=== PATIENT | female | born 1970 | race Caucasian/White ===

== ENCOUNTER 2022-02-03 09:01 | Outpatient (CLI) | payer MEDICARE, MEDICAID, SELFPAY ==
--- NOTE | 2022-02-03 09:15 | CT_ITS ---
WS: [id number] CT ABDOMEN CONTRAST TECHNIQUE: Contrast enhanced CT of the abdomen with coronal and sagittal reformatted images. CLINICAL INFORMATION: RUQ ABDOMINAL SWELLING,MASS,LUMP COMPARISON: CT abdomen pelvis 10 18,014 DLP: 960.[address] scans at [facility] use at least one of these dose optimization techniques: automated e xposure control; mA and/or kV adjustment per patient size (includes targeted exams where dose is matc hed to clinical indication); or iterative reconstruction. FINDINGS: Hepatomegaly with diffuse fatty infiltration liver. Cholecystectomy clips. Normal spleen. Moderate es ophageal hiatal hernia with partial intrathoracic stomach similar to 2014. Lung bases are well aerate d. Calcified granuloma RIGHT lower lobe. Coronary calcification. Normal portal vein and splenic vein. Normal spleen. Adrenal glands are normal. No hydronephrosis in either kidney. Normal renal parenchymal enhancement. Proximal celiac and SMA are patent. Adrenal glands are normal. Normal renal parenchymal enhancement. No hydronephrosis. Normal caliber abdominal aorta. Hypertrophic changes lower thoracic and lumbar spi ne. Disc space narrowing L5-S1. CT/CT abdomen w con* [id number] IMPRESSION: 1. Diffuse fatty infiltration liver. Mild hepatomegaly. 2. Moderate esophageal hiatal hernia with partial intrathoracic stomach progre ssed slightly since 2014. 3. Normal caliber abdominal aorta. 4. No hydronephrosis in either kidney. Normal renal parenchymal enhancement. 5. No other acute abdominal findings.
[2022-02-03] MEDS: iohexol 300 mg/mL 50 mL Btl PO (09:34)
[2022-02-03] MEDS: iohexol 300 mg/mL 100 mL Btl IV (09:55)
== END 2022-02-03 09:02 | disposition home or self-care (01) ==
LOC: RAD 09:03
PROVIDERS: PCP Nurse Practitioner Family; Visit Provider Nurse Practitioner
DX: R19.01 Right upper quadrant abdominal swelling, mass and lump (principal); K76.0 Fatty (change of) liver, not elsewhere classified; K44.9 Diaphragmatic hernia without obstruction or gangrene
CPT/HCPCS: 74160

== ENCOUNTER → 2022-03-09 08:07 | Outpatient (BNVA) | payer MEDICARE, MEDICAID, SELFPAY | PROVIDERS: PCP Nurse Practitioner Family; Referring Provider Nurse Practitioner; Visit Provider Surgery | DX: K44.9 Diaphragmatic hernia without obstruction or gangrene (principal); R10.9 Unspecified abdominal pain | CPT/HCPCS: 99204 ==

== ENCOUNTER 2022-05-14 10:54 | Inpatient (IN) | payer MEDICARE, MEDICAID, SELFPAY ==
[2022-05-14] VITALS (29 sets, daily range): BP systolic 117–178; BP diastolic 74–110; PULSE 90–115; RESP 10–20; TEMP 36.7–36.9; O2SAT 92–97; BMI 41.2
[2022-05-14 11:17] LABS: Glucose Point of Care 377 mg/dL (70-110)
--- NOTE | 2022-05-14 11:30 | W.ED.GENADLT ---
HPI - General Adult General: Chief complaint: Abdominal Pain Stated complaint: RLQ PAIN/ HIGH BLOOD SUGAR Time Seen by Provider: 05/14/22 11:09 History of Present Illness: Patient is a 52-year-old female history of prior cholecystectomy, morbid obesity, hypothyroidism, hyperlipidemia, diabetes who presents the emergency room for evaluation of epigastric and left lower quadrant abdominal pain x1 week. Patient tells me that pain started at rest since it has been worsening. Patient said that she has nausea vomiting worsening pain with p.o. intake. Patient denies any diarrhea melena/hematochezia. No complaints currently. Patient denies any fever or chills. Patient denies any chest pain, shortness or palpitation. Patient states that the pain has been unremitting and constant. No prior history of kidney stones. Onset:1 week ago Duration:1 week Location:home Severity:moderate Associated symptoms: Reports nausea and vomiting; Deny chest pain, dyspnea, rash or palpitations Review of Systems Const: Denies: fever(s) or chills Eyes: Denies: change in vision ENMT: Denies: mouth pain Card: Denies: chest pain or palpitations Resp: Denies: dyspnea or non-productive cough GI: Reports: abdominal pain (+midepigastric abd pain, LLQ abd pain), nausea and vomiting; Denies: diarrhea : Denies: dysuria Musc: Denies: extremity pain Skin/Breast: Denies: rash or new lesions Neuro: Denies: weakness in extremities Psych: Reports: other (Normal mood) Wiliam/Lymph: Denies: easy bruising PFSH ED PFSH: Medical History Chronic kidney disease Diabetes type 2, controlled Hyperlipidemia Hypertension Hypothyroidism Surgical History History of colonoscopy 10+yrs History of laparoscopic cholecystectomy 1997 Family History Other Cancer Chronic kidney disease (CKD) Dementia Diabetes Stroke Denies family history of CAD (coronary artery disease) Anesthesia complication Social History Smoking and tobacco status: never smoked Alcohol intake: never Lives independently: Yes Household members: none Physical Exam Const: COMMON NORMALS: alert HENMT: COMMON NORMALS: atraumatic HEAD & SCALP: atraumatic MOUTH: moist mucous membranes abnormal Eye: COMMON NORMALS: EOMs intact bilaterally and conjunctivae normal CONJUNCTIVA: Yes conjunctivae normal Neck/C-Spine: COMMON NORMALS: full ROM and supple Resp: COMMON NORMALS: normal respiratory effort and clear to auscultation bilaterally AUSCULTATION: clear to auscultation bilaterally Cardio: RATE: tachycardic GI: COMMON NORMALS: Soft to palpation PALPATION: Yes Soft to palpation OTHER: +LLQ and midepigastric focal TTP. NO guarding rebound, guarding, rigidity. No CVA tenderness to percussion. Neg Goldstein/Neg McBurney's point tenderness, no suprabupic tenderness to palpation. Extremity: COMMON NORMALS: full ROM Neuro: SENSORIUM/ORIENTATION: Yes alert MOTOR EXAM: No Abnormal motor strength present and Other motor observations present (no focal motor deficits) Psych: COMMON NORMALS: speech normal SPEECH: Yes normal speech MOOD & AFFECT: Yes euthymic mood Course Vital Signs: Vital signs: Vital Signs Temperature 98.3 F 05/17/22 12:00 Pulse Rate 100 05/17/22 18:30 Respiratory Rate 18 05/17/22 12:00 Blood Pressure 158/98 05/17/22 12:00 Pulse Oximetry 95 05/17/22 12:00 [facility] - General Adult Medical Decision Making 52-year-old female with a history of diabetes, hypothyroidism, prior cholecystectomy presenting to the emergency room with complaints of midepigastric Srikanth pain and left lower quadrant dull pain x1 week. Exam, patient has mild tenderness palpation in mid-epigastric and left lower quadrant area. No guarding or rebound tenderness. Patient is noted to be mildly tachycardic to the low 100s. CT is negative for any acute finding. Patient's lab work is consistent with possible early DKA. Patient has a mild anion gap of 25. pH of 7.3.. Patient is ketone positive. Patient received 1 L fluid. Glucose of 399. Patient will will need rehydration and close monitoring to ensure that she does not develop any further gap. Lactic acid pending. Disposition: admission Lab Data : 05/17/22 05:22 05/17/22 05:22 Radiology Impressions Abdomen/Pelvis CT 05/14/22 11:40 IMPRESSION: No acute findings. KUB X-Ray 05/16/22 18:27 IMPRESSION: No acute findings. Laboratory Results WBC 9.2 10^3/uL (4.0-10.0) 05/14/22 11:28 RBC 5.41 10^6/uL (4.1-5.3) H 05/14/22 11:28 Hgb 15.5 g/dL (11.5-15.3) H 05/14/22 11:28 Hct 46.2 % (37.0-47.0) 05/14/22 11:28 MCV 85.4 fl (81-99) 05/14/22 11:28 MCH 28.7 pg (28.0-34.0) 05/14/22 11:28 MCHC 33.5 g/dL (30.0-36.0) 05/14/22 11:28 RDW 12.6 % (12.1-15.1) 05/14/22 11:28 Plt Count 292 10^3/cmm (130-400) 05/14/22 11:28 MPV 11.0 fL (7.4-10.4) H 05/14/22 11:28 Neut % (Auto) 66.8 % 05/14/22 11:28 Lymph % (Auto) 25.5 % 05/14/22 11:28 Walton % (Auto) 6.3 % 05/14/22 11:28 Eos % (Auto) 0.5 % 05/14/22 11:28 Baso % (Auto) 0.4 % 05/14/22 11:28 Neut # (Auto) 6.14 10^3/uL (1.8-7.7) 05/14/22 11:28 Lymph # (Auto) 2.4 10^3/uL (0.8-4.8) 05/14/22 11:28 Walton # (Auto) 0.6 10^3/uL (0.2-0.9) 05/14/22 11:28 Eos # (Auto) 0.1 10^3/uL (0.0-0.8) 05/14/22 11:28 Baso # (Auto) 0.0 10^3/uL (0.0-0.1) 05/14/22 11:28 Nucleated RBC % (auto) 0 % 05/14/22 11:28 Nucleated RBCs # 0.0 /100WBC 05/14/22 11:28 Specimen Type Arterial 05/14/22 12:49 Sample Site Radial, left 05/14/22 12:49 ABG pH 7.30 (7.35-7.45) L 05/14/22 12:49 ABG pCO2 33.3 mmHg (35-45) L 05/14/22 12:49 ABG pO2 76.7 mmHg (80.0-100.0) L 05/14/22 12:49 ABG HCO3 16.5 mmol/L (22-26) L 05/14/22 12:49 ABG O2 Saturation 94.0 05/14/22 12:49 ABG Base Excess -8.7 mmol/L (-2.0-2.0) L 05/14/22 12:49 Laz Test Pos 05/14/22 12:49 A-a O2 Gradient 4.1 mmHg (5-10) L 05/14/22 12:49 Hematocrit 47.1 % (37-47) H 05/14/22 12:49 Hgb O2 Saturation 93.4 % (95-100) L 05/14/22 12:49 Carboxyhemoglobin 0.1 %THgb (0.4-20.1) L 05/14/22 12:49 Methemoglobin 0.6 % (0.4-1.5) 05/14/22 12:49 Total Hemoglobin 15.4 g/dL (12-16) 05/14/22 12:49 Sodium 132.0 mmol/L (131-143) 05/14/22 12:49 Potassium 4.3 mmol/L (3.5-5.0) 05/14/22 12:49 Glucose 345.0 mg/dL (70-115) H 05/14/22 12:49 Ionized Calcium 1.4 mmol/L (1.1-1.4) 05/14/22 12:49 O2 Delivery Device Room air 05/14/22 12:49 FiO2 21.0 % 05/14/22 12:49 Building Maintenance Supervisor ID Cak 05/14/22 12:49 Sodium 131 mmol/L (136-145) L 05/14/22 11:28 Potassium 4.8 mmol/L (3.5-5.1) 05/14/22 11:28 Chloride 91 mmol/L (98-107) L 05/14/22 11:28 Carbon Dioxide 19 mmol/L (22-29) L 05/14/22 11:28 Anion Gap 25.8 (5-19) H 05/14/22 11:28 BUN 14 mg/dL (6-20) 05/14/22 11:28 Creatinine 1.1 mg/dL (0.5-0.9) H 05/14/22 11:28 GFR Calculation 51.8 mL/min (90-130) L 05/14/22 11:28 Glucose 399 mg/dL (65-115) H 05/14/22 11:28 POC Glucose 377 mg/dL (70-110) H 05/14/22 11:14 Calculated Osmolality 289 mOsm/kg (285-295) 05/14/22 11:28 Lactic Acid 1.1 mmol/L (0.5-2.2) 05/14/22 13:49 Lactate 1.1 mmol/L (0.5-2.2) 05/14/22 11:28 Calcium 10.5 mg/dL (8.5-10.5) 05/14/22 11:28 Total Bilirubin 0.4 mg/dL (0.15-1.2) 05/14/22 11:28 AST 10 U/L (0-32) 05/14/22 11:28 ALT 10 U/L (0-33) 05/14/22 11:28 Alkaline Phosphatase 100 IU/L (35-105) 05/14/22 11:28 Troponin T Baseline 21 ng/L (0-10) H 05/14/22 11:28 Troponin T 120 Minute 16.84 ng/L (0-10) H 05/14/22 13:49 Delta Troponin T -4.16 ABS# (0-10) L 05/14/22 13:49 Total Protein 7.1 g/dL (6.6-8.7) 05/14/22 11:28 Albumin 4.2 g/dL (3.5-5.2) 05/14/22 11:28 Globulin 2.9 g/dL (1.3-4.6) 05/14/22 11:28 Lipase 17 U/L (13-60) 05/14/22 11:28 Procalcitonin 0.06 ng/mL (0-0.5) 05/14/22 13:49 Serum Ketones Positive (Negative) H 05/14/22 11:28 Imaging Data Other Imaging: [facility]'s [facility]: [facility] [address] [place] [address] CT Scan Report Signed Patient: Brittny Banks Unit #: [id number] : 1970 Age/Sex: 52 / F ADM Date: 05/14/22 Loc: ER Room/Bed: Attending Dr: Ordering Provider/Ordering MD: Regis Christian MD Date of Service: 05/14/22 Procedure(s): CT abdomen pelvis wo con [id number] Accession Number(s): [id number] Report Number: [id number] PROCEDURE INFORMATION: Exam: CT Abdomen And Pelvis Without Contrast Exam date and time: 05/14/2022 12:11 PM Age: 52 years old Clinical indication: Abdominal pain; Additional info: Abd pain TECHNIQUE: Imaging protocol: Computed tomography of the abdomen and pelvis without contrast. Total images: 849 Radiation optimization: All CT scans at this facility use at least one of these dose optimization techniques: automated exposure control; mA and/or kV adjustment per patient size (includes targeted exams where dose is matched to clinical indication); or iterative reconstruction. COMPARISON: CT abdomen w con* [id number] 02/03/2022 9:48 AM RADIATION DOSE METRICS: Total DLP (mGy-cm): 1270.46 FINDINGS: Diaphragm: A moderate hiatal hernia is present. This finding is stable when compared to the prior exam. Liver: Normal. No mass. Gallbladder and bile ducts: Prior cholecystectomy noted. Pancreas: Normal. No ductal dilation. Spleen: Normal. No splenomegaly. Adrenal glands: Normal. No mass. Kidneys and ureters: Normal. No hydronephrosis. Stomach and bowel: Unremarkable. No obstruction. No mucosal thickening. Appendix: No evidence of appendicitis. Intraperitoneal space: Unremarkable. No free air. No significant fluid collection. Vasculature: Incidental phleboliths noted. Lymph nodes: Unremarkable. No enlarged lymph nodes. Urinary bladder: Unremarkable as visualized. Reproductive: Unremarkable as visualized. Bones/joints: Disc degeneration is most notable at L5/S1. Soft tissues: Unremarkable. CT/CT abdomen pelvis wo con [id number] IMPRESSION: No acute findings. ? Dictated By: Amadou Babb MD Signed By: Amadou Babb MD Signed Date/Time: 05/14/22 1312 DD/ 1211 Discharge Plan Discharge Patient Disposition: Home Clinical Impression: Abdominal pain, Nausea & vomiting Condition: Stable Discharge Orders: Discharge Order (Routine); Ordered 05/17/22 Ordered By: Remedios Quinteros Discharge Diet: Diabetic Discharge Activity: Increase activity as tolerated Coding Level of Care Code ED Store Sales Leader for Chg Fwd Exam Comprehensive
[2022-05-14 11:34] LABS: Basophils % 0.4 %; Eosinophils # 0.1 10^3/uL (0.0-0.8); Eosinophils % 0.5 %; Hematocrit 46.2 % (37.0-47.0); Hemoglobin 15.5 g/dL (11.5-15.3); Lymphocytes # 2.4 10^3/uL (0.8-4.8); Lymphocytes % 25.5 %; Mean Corpuscular HGB Conc 33.5 g/dL (30.0-36.0); Mean Corpuscular Hemoglobin 28.7 pg (28.0-34.0); Mean Corpuscular Volume 85.4 fl (81-99); Monocytes # 0.6 10^3/uL (0.2-0.9); Monocytes % 6.3 %; Neutrophils # 6.14 10^3/uL (1.8-7.7); Neutrophils % 66.8 %; Nucleated Red Blood Cells % 0 %; Platelet Count 292 10^3/cmm (130-400); Red Blood Count 5.41 10^6/uL (4.1-5.3); Red Cell Distribution Width 12.6 % (12.1-15.1); White Blood Count 9.2 10^3/uL (4.0-10.0)
--- NOTE | 2022-05-14 11:40 | CTR_ITS ---
PROCEDURE INFORMATION: Exam: CT Abdomen And Pelvis Without Contrast Exam date and time: 05/14/2022 12:11 PM Age: 52 years old Clinical indication: Abdominal pain; Additional info: Abd pain TECHNIQUE: Imaging protocol: Computed tomography of the abdomen and pelvis without contrast. Total images: 849 Radiation optimization: All CT scans at this facility use at least one of these dose optimization techniques: automated exposure control; mA and/or kV adjustment per patient size (includes targeted exams where dose is matched to clinical indication); or iterative reconstruction. COMPARISON: CT abdomen w con* [id number] 02/03/2022 9:48 AM RADIATION DOSE METRICS: Total DLP (mGy-cm): 1270.46 FINDINGS: Diaphragm: A moderate hiatal hernia is present. This finding is stable when compared to the prior exam. Liver: Normal. No mass. Gallbladder and bile ducts: Prior cholecystectomy noted. Pancreas: Normal. No ductal dilation. Spleen: Normal. No splenomegaly. Adrenal glands: Normal. No mass. Kidneys and ureters: Normal. No hydronephrosis. Stomach and bowel: Unremarkable. No obstruction. No mucosal thickening. Appendix: No evidence of appendicitis. Intraperitoneal space: Unremarkable. No free air. No significant fluid collection. Vasculature: Incidental phleboliths noted. Lymph nodes: Unremarkable. No enlarged lymph nodes. Urinary bladder: Unremarkable as visualized. Reproductive: Unremarkable as visualized. Bones/joints: Disc degeneration is most notable at L5/S1. Soft tissues: Unremarkable. CT/CT abdomen pelvis wo con [id number] IMPRESSION: No acute findings.
[2022-05-14 11:50] LABS: Ketone (Acetest) Serum Positive (Negative)
--- NOTE | 2022-05-14 11:53 | ECG_ITS ---
[facility] Test Date: 2022-05-14 Pat Name: Brittny Banks Department: Room: Gender: Female Vp Client Services: : 1970 Requested By: Regis Christian Order Number: [id number] Suni MD: Greg Calloway M.D. Measurements Intervals [place] Rate: 102 P: 60 AR: 139 QRS: 43 QRSD: 83 T: 45 QT: 331 QTc: 431 Interpretive Statements SINUS TACHYCARDIA No previous ECG available for comparison Electronically Signed On 05-14-2022 20:43:11 CDT by Greg Calloway M.D. [id number]
[2022-05-14 11:54] LABS: Lactate (Lactic Acid level) 1.1 mmol/L (0.5-2.2)
[2022-05-14 11:55] LABS: Alanine Aminotransferase 10 U/L (0-33); Albumin Level 4.2 g/dL (3.5-5.2); Alkaline Phosphatase 100 IU/L (35-105); Anion Gap 25.8 (5-19); Aspartate Amino Transferase 10 U/L (0-32); Blood Urea Nitrogen 14 mg/dL (6-20); Calcium 10.5 mg/dL (8.5-10.5); Carbon Dioxide 19 mmol/L (22-29); Chloride 91 mmol/L (98-107); Globulin 2.9 g/dL (1.3-4.6); Glomerular Filtration Rate 51.8 mL/min (90-130); Glucose 399 mg/dL (65-115); Lipase 17 U/L (13-60); Osmolality Calculated 289 mOsm/kg (285-295); Potassium 4.8 mmol/L (3.5-5.1); Sodium 131 mmol/L (136-145); Total Bilirubin 0.4 mg/dL (0.15-1.2); Total Protein 7.1 g/dL (6.6-8.7)
[2022-05-14 12:57] LABS: Troponin(5th) Baseline 21 ng/L (0-10)
[2022-05-14 13:01] LABS: ABG PCO2 33.3 mmHg (35-45); Alveolar-Arterial Oxygen Gradi 4.1 mmHg (5-10); Arterial Blood Gas Hematocrit 47.1 % (37-47); Base Excess ABG -8.7 mmol/L (-2.0-2.0); Blood Gas Allen Test Pos; Blood Gas Operator Identificat CAK; Blood Gas Sample Site Radial, left; Blood Gas Sample Type Arterial; Carboxyhemoglobin 0.1 %THgb (0.4-20.1); HCO3 ABG 16.5 mmol/L (22-26); HGB O2 Sat 93.4 % (95-100); Ionized Calcium Level - ABG 1.4 mmol/L (1.1-1.4); Methemoglobin 0.6 % (0.4-1.5); Oxygen Device ROOM AIR; PO2 ABG 76.7 mmHg (80.0-100.0); Potassium Level - ABG 4.3 mmol/L (3.5-5.0); Total Hemoglobin 15.4 g/dL (12-16)
--- NOTE | 2022-05-14 13:53 | ECG_ITS ---
[facility] Test Date: 2022-05-14 Pat Name: Brittny Banks Department: Room: Gender: Female Freight Caller: : 1970 Requested By: Regis Christian Order Number: [id number] Suni MD: Greg Calloway M.D. Measurements Intervals [place] Rate: 100 P: 62 TN: 138 QRS: 34 QRSD: 82 T: 44 QT: 334 QTc: 432 Interpretive Statements SINUS TACHYCARDIA Compared to ECG 05/14/2022 13:19:56 No significant changes Electronically Signed On 05-14-2022 20:46:07 CDT by Greg Calloway M.D. [email or web address] [email or web address].[employer]/store/[id number]
[2022-05-14 14:20] LABS: Troponin 5 2HR 16.84 ng/L (0-10)
[2022-05-14 14:26] LABS: Troponin 5 2HR Delta -4.16 ABS# (0-10)
[2022-05-14 14:51] LABS: Lactic Sepsis W/Reflex 1.1 mmol/L (0.5-2.2)
[2022-05-14] MEDS: sodium chloride 0.9% 1,000 ML 999 ML IV (14:56)
[2022-05-14] MEDS: insulin lispro 100 unit/1 mL SUBCUT (14:56)
--- NOTE | 2022-05-14 15:34 | PC.PHAR ---
PT UNABLE TO VERIFY MEDS - MEDS VERIFIED USING LIST FROM DR OFFICE, CALL TO [facility] AND PT OTHER PHARMACY.
--- NOTE | 2022-05-14 15:51 | PM.HP ---
Providers/Chief Complaint Admitting Physician: Remedios Quinteros MD Primary Care Provider: Marlene Santamaria NP Chief Complaint: RLQ PAIN/ HIGH BLOOD SUGAR History of Present Illness Brittny Banks is a 52 year old female who has history of type 2 diabetes, takes 80 units of Lantus on daily basis, along short acting insulin, presented to the hospital for worsening of abdominal pain. Patient is stating that her symptoms started on Tuesday and got worse the next few days, in total she has had more than 20 episode of emesis. Endorsing subjective fevers, UTI burning and itching with voiding urine. She has not noticed any vaginal discharge. No chest pain or shortness of breath. She is endorsing abdominal pain mid epigastric region and left lower quadrant. She is denying diarrhea. Last bowel movement was 1 week ago. She lives alone, she is not she does not have any children. She have siblings, she wants her [id number] to be notified in case something happens to her. She is full code. In the ER I was told that patient should be able to go to [facility] however blood work is consistent with DKA, she has received fluid boluses, I will transfer her to ICU start DKA protocol change IV fluids to normal saline with potassium, I have requested triglyceride level Free T4 level her hemoglobin A1c is 12, she does take time to answer my questions however does not have typical strokelike features. Review of Systems Const: Reports: fever(s) Eyes: Denies: change in vision ENMT: Denies: throat pain Card: Denies: chest pain Resp: Denies: dyspnea GI: Reports: abdominal pain, nausea and vomiting : Reports: flank pain, difficulty voiding and dysuria Musc: Denies: neck pain Skin/Breast: Denies: rash Neuro: Reports: headache(s) Psych: Denies: anxiety Endo: Denies: polyuria Wiliam/Lymph: Denies: easy bruising All/Imm: Denies: urticaria Medications/Allergies Home Medications Medication Instructions Recorded Confirmed Last Taken Type levothyroxine 125 mcg capsule 125 mcg PO DAILY 03/09/22 05/14/22 Unknown History albuterol sulfate 90 mcg/actuation 2 puff INHALATION Q4H PRN 05/14/22 05/14/22 Unknown History aerosol inhaler cetirizine 10 mg tablet 10 mg PO DAILY 05/14/22 05/14/22 Unknown History clobetasol 0.05 % topical cream 1 applic TOPICAL BID 05/14/22 05/14/22 Unknown History diclofenac potassium 50 mg tablet 50 mg PO BID 05/14/22 05/14/22 Unknown History docusate sodium 100 mg capsule 100 mg PO TID PRN 05/14/22 05/14/22 Unknown History duloxetine 60 mg capsule,delayed 60 mg PO DAILY 05/14/22 05/14/22 Unknown History release gabapentin 300 mg capsule 300 mg PO BID 05/14/22 05/14/22 Unknown History glipizide 10 mg tablet 15 mg PO BID 05/14/22 05/14/22 Unknown History guaifenesin 600 mg tablet, 600 mg PO Q12H PRN 05/14/22 05/14/22 Unknown History extended release 12 hr (Mucinex) insulin degludec 200 unit/mL (3 40 unit SUBCUT BEDTIME 05/14/22 05/14/22 Unknown History mL) subcutaneous pen (Tresiba FlexTouch U-200 insulin) insulin lispro 200 unit/mL (3 mL) See Rx Instructions .ROUTE .COMPLEX 05/14/22 05/14/22 Unknown History subcutaneous pen (Humalog KwikPen U-200 Insulin) linagliptin 5 mg tablet (Tradjenta) 5 mg PO DAILY 05/14/22 05/14/22 Unknown History losartan 25 mg tablet 25 mg PO DAILY 05/14/22 05/14/22 Unknown History omeprazole 40 mg capsule,delayed 40 mg PO DAILY 05/14/22 05/14/22 Unknown History release ondansetron 8 mg disintegrating 8 mg PO BID 05/14/22 05/14/22 Unknown History tablet pantoprazole 40 mg tablet,delayed 40 mg PO DAILY 05/14/22 05/14/22 Unknown History release rosuvastatin 20 mg tablet 40 mg PO DAILY 05/14/22 05/14/22 Unknown History semaglutide 1 mg/dose (4 mg/3 mL) 0.25 mg SUBCUT Q7D 05/14/22 05/14/22 Unknown History subcutaneous pen injector (Ozempic) sertraline 50 mg tablet 50 mg PO DAILY 05/14/22 05/14/22 Unknown History tramadol 50 mg tablet 50 mg PO Q6H PRN 05/14/22 05/14/22 Unknown History Allergies Allergy/AdvReac Type Severity Reaction Status Date / Time No Known Allergies Allergy Verified 05/14/22 15:02 PFSH Acute PFSH: Medical History Chronic kidney disease Diabetes type 2, controlled Hyperlipidemia Hypertension Hypothyroidism Surgical History History of colonoscopy 10+yrs History of laparoscopic cholecystectomy 1997 Family History Other Cancer Chronic kidney disease (CKD) Dementia Diabetes Stroke Denies family history of CAD (coronary artery disease) Anesthesia complication Social History Smoking and tobacco status: never smoked Alcohol intake: never Lives independently: Yes Household members: none Vitals/I&O/Wt Last Vital Signs Temp 98.4 F 05/14/22 11:10 Pulse 104 H 05/14/22 11:10 Resp 16 05/14/22 11:10 BP 178/101 05/14/22 11:10 Pulse Ox 96 05/14/22 11:10 Weight last 48 hrs Weight 92.533 kg Physical Exam Narrative: Very pleasant cooperative Patient does take time to answer my questions No strokelike features Patient is stating whenever she is sick she would take time to answer Abdomen tender to palpate Otherwise soft Lower extremity no edema multiple scratch guaman on her extremities Awake and alert Extremely dehydrated Saturating well on room air EOMI, PERRLA Awake and alert GCS 15 Data : 05/14/22 11:28 05/14/22 16:51 A&P Assessment and plan (1) DKA (diabetic ketoacidosis): Status: Acute (2) Abdominal pain: Status: Acute (3) Nausea & vomiting: Status: Acute (4) UTI (urinary tract infection): Status: Acute Plan DKA Poorly controlled type 2 diabetes N.p.o. Start insulin Add normal saline with 40 mEq Will give her 40 mEq K rider as well Hemoglobin A1c 12 Check triglyceride Lipase is normal Patient seems to have signs of UTI CT abdomen pelvis unremarkable Hiatal hernia Troponin trending down Will do chest x-ray Abnormal TSH, she does take levothyroxine at home I would increase the dose to 150 mcg UTI: Endorsing dysuria and itching Check UA with culture start ceftriaxone Patient has cleaner housekeeping in [place] N.p.o. for now BMP every 4 hours DKA protocol IV fluids, ceftriaxone Patient is full code She does not have any family, children, she wants her [id number] to be notified in case of an emergency Attestations Medical Necessity Statement*: Anticipating more than 2 midnights for management of DKA Time Spent in Patient Care: 40 Coding Level of Care Code Acute Insurance Examiner for [facility] Fwd Diagnoses DKA (diabetic ketoacidosis) E11.10 Abdominal pain R10.9 Nausea & vomiting R11.2 UTI (urinary tract infection) N39.0
[2022-05-14 16:27] LABS: Procalcitonin 0.06 ng/mL (0-0.5)
[2022-05-14] MEDS: heparin 5,000 unit/mL INJ 1 mL 5000 UNIT SUBCUT (17:17)
[2022-05-14] MEDS: sodium chloride 0.9% 1,000 ML 100 ML IV (17:18)
[2022-05-14 17:22] LABS: Anion Gap 24.2 (5-19); Blood Urea Nitrogen 12 mg/dL (6-20); Calcium 9.7 mg/dL (8.5-10.5); Carbon Dioxide 16 mmol/L (22-29); Chloride 96 mmol/L (98-107); Glomerular Filtration Rate 65.2 mL/min (90-130); Glucose 275 mg/dL (65-115); Osmolality Calculated 284 mOsm/kg (285-295); Potassium 4.2 mmol/L (3.5-5.1); Sodium 132 mmol/L (136-145); Thyroid Stimulating Hormone 18.04 uIU/mL (0.27-4.20)
[2022-05-14] MEDS: insulin regular-human 250 UNIT in sodium chloride 0.9% 250 ML 5.96 UNIT IV (17:29)
[2022-05-14 17:58] LABS: Estmated Average Glucose 301; Hemoglobin A1C 12.1 % (4.0-6.0)
[2022-05-14 18:05] LABS: Glucose Point of Care 196 mg/dL (70-110)
[2022-05-14 18:34] LABS: Glucose Point of Care 255 mg/dL (70-110)
[2022-05-14] MEDS: acetaminophen 500 mg Tablet PO (18:35)
[2022-05-14] MEDS: cefTRIAXone 1,000 MG in sodium chloride 0.9% (plus) 50 ML 100 MG IV (19:38)
[2022-05-14] MEDS: lidocaine 1% 5 ML in potassium chloride premix 100 ML 50 ML IV (19:40)
[2022-05-14] MEDS: sodium chlor 0.9% + KCl 40 mEq 40 MEQ/1,000 ML BAG 100 MEQ IV (19:40)
[2022-05-14 19:56] LABS: Anion Gap 21.6 (5-19); Blood Urea Nitrogen 12 mg/dL (6-20); Carbon Dioxide 20 mmol/L (22-29); Chloride 99 mmol/L (98-107); Chol HDL Ratio 4.85 mg/dL (0.0-4.40); Cholesterol 199 mg/dL (0-200); Glomerular Filtration Rate 65.2 mL/min (90-130); Glucose 123 mg/dL (65-115); HDL Cholesterol 41 mg/dL (60-100); LDL Cholesterol Calculated 118 mg/dL (50-129); LDL HDL Ratio 2.88 RATIO (0.00-3.22); Osmolality Calculated 285 mOsm/kg (285-295); Potassium 3.6 mmol/L (3.5-5.1); Sodium 137 mmol/L (136-145); Triglycerides 202 mg/dL (0-150)
[2022-05-14] MEDS: TRAMadol 50 mg Tablet PO (20:09)
[2022-05-14 20:22] LABS: Protein Urine 3+ (Negative); Specific Gravity, Urine 1.025 (1.005-1.030); Urine Appearance Hazy (CLEAR); Urine Color Yellow (Yellow); pH Urine 5 (5-7)
[2022-05-14 20:23] LABS: Add Urine Microscopic? YES; Bilirubin Urine 1+ (Negative); Blood Urine Neg (Negative); Glucose Urine UA 4+ (Normal); Ketones Urine 3+ (Negative); Leukocyte Esterase Urine 2+ (Negative); Nitrate Urine Negative (Negative); Urobilinogen Urine Norm (Negative)
[2022-05-14 20:28] LABS: Add Urine Culture? No; Bacteria Urine 1+ /hpf; Mucus Urine TRACE /hpf; RBC Urine 0-4 /hpf (0-2); Squamous Epithelial Cell Urine 25-40 /hpf (0-5); WBC Urine 15-25 /hpf (0-5)
[2022-05-14 21:15] LABS: Free T4 Free Thyroxine 0.64 ng/dL (0.82-1.77)
[2022-05-14 21:23] LABS: Glucose Point of Care 130 mg/dL (70-110)
[2022-05-14 21:23] LABS: Glucose Point of Care 104 mg/dL (70-110)
[2022-05-14 21:23] LABS: Glucose Point of Care 100 mg/dL (70-110)
--- NOTE | 2022-05-14 21:50 | PC.NURSE ---
D5 Fluid Patient's blood sugar running about 100 while on insulin drip. 40 meq KCL NS running at 100 ml/hr with an additional K rider; no dextrose fluids running. Dr. Matt contacted and verbal order received for Dextrose 5% in 0.45% NS to run at 100 ml/hr for a total of 200 ml/hr of fluid maintenance. See MAR for details.
[2022-05-14] MEDS: ondansetron 2 mg/ML SDV 2 mL 4 MG IVP (22:11)
[2022-05-14] MEDS: dextrose 5%-sod chloride 0.45% 1,000 ML 100 ML IV (22:11)
[2022-05-14 22:20] LABS: Glucose Point of Care 111 mg/dL (70-110)
[2022-05-14 22:49] LABS: Glucose Point of Care 135 mg/dL (70-110)
[2022-05-15] VITALS (49 sets, daily range): BP systolic 127–168; BP diastolic 77–108; PULSE 75–134; RESP 9–19; TEMP 36.8–37.2; O2SAT 90–97
[2022-05-15 01:04] LABS: Anion Gap 18.5 (5-19); Blood Urea Nitrogen 12 mg/dL (6-20); Calcium 9.4 mg/dL (8.5-10.5); Carbon Dioxide 20 mmol/L (22-29); Chloride 101 mmol/L (98-107); Glomerular Filtration Rate 57.8 mL/min (90-130); Glucose 201 mg/dL (65-115); Magnesium 1.6 mg/dL (1.7-2.3); Osmolality Calculated 285 mOsm/kg (285-295); Phosphorus 2.8 mg/dL (2.5-4.5); Potassium 4.5 mmol/L (3.5-5.1); Sodium 135 mmol/L (136-145)
[2022-05-15] MEDS: magnesium sulfate premix 2 GM/50 ML PIGGYBACK IV (02:05)
[2022-05-15 02:18] LABS: Glucose Point of Care 183 mg/dL (70-110)
[2022-05-15 02:18] LABS: Glucose Point of Care 144 mg/dL (70-110)
[2022-05-15 02:18] LABS: Glucose Point of Care 161 mg/dL (70-110)
[2022-05-15 02:18] LABS: Glucose Point of Care 191 mg/dL (70-110)
[2022-05-15] MEDS: TRAMadol 50 mg Tablet PO ×2 (02:19→13:09)
[2022-05-15] MEDS: heparin 5,000 unit/mL INJ 1 mL 5000 UNIT SUBCUT ×2 (04:10→15:31)
[2022-05-15 04:15] LABS: Glucose Point of Care 132 mg/dL (70-110)
[2022-05-15 04:15] LABS: Glucose Point of Care 166 mg/dL (70-110)
[2022-05-15 05:37] LABS: Basophils % 0.3 %; Eosinophils # 0.1 10^3/uL (0.0-0.8); Hematocrit 40.3 % (37.0-47.0); Hemoglobin 13.8 g/dL (11.5-15.3); Lymphocytes # 2.1 10^3/uL (0.8-4.8); Mean Corpuscular HGB Conc 34.2 g/dL (30.0-36.0); Mean Corpuscular Volume 84.7 fl (81-99); Monocytes # 0.6 10^3/uL (0.2-0.9); Monocytes % 6.2 %; Neutrophils # 6.27 10^3/uL (1.8-7.7); Neutrophils % 69.2 %; Nucleated Red Blood Cells % 0 %; Platelet Count 250 10^3/cmm (130-400); Red Blood Count 4.76 10^6/uL (4.1-5.3); Red Cell Distribution Width 12.6 % (12.1-15.1); White Blood Count 9.1 10^3/uL (4.0-10.0)
[2022-05-15] MEDS: ondansetron 2 mg/ML SDV 2 mL 4 MG IVP ×4 (05:52→21:31)
[2022-05-15 05:58] LABS: Lactate (Lactic Acid level) 0.7 mmol/L (0.5-2.2)
[2022-05-15 06:00] LABS: Alanine Aminotransferase 10 U/L (0-33); Albumin Level 3.3 g/dL (3.5-5.2); Alkaline Phosphatase 84 IU/L (35-105); Blood Urea Nitrogen 12 mg/dL (6-20); Calcium 8.8 mg/dL (8.5-10.5); Carbon Dioxide 15 mmol/L (22-29); Chloride 103 mmol/L (98-107); Globulin 2.7 g/dL (1.3-4.6); Glomerular Filtration Rate 74.7 mL/min (90-130); Glucose 186 mg/dL (65-115); Osmolality Calculated 285 mOsm/kg (285-295); Sodium 135 mmol/L (136-145); Total Bilirubin 0.2 mg/dL (0.15-1.2)
[2022-05-15 06:04] LABS: Anion Gap 21.4 (5-19); Aspartate Amino Transferase 15 U/L (0-32); Potassium 4.4 mmol/L (3.5-5.1)
[2022-05-15 06:07] LABS: Glucose Point of Care 207 mg/dL (70-110)
[2022-05-15 06:07] LABS: Glucose Point of Care 191 mg/dL (70-110)
[2022-05-15] MEDS: sodium chlor 0.9% + KCl 40 mEq 40 MEQ/1,000 ML BAG 75 MEQ IV (06:57)
[2022-05-15 07:15] LABS: Glucose Point of Care 187 mg/dL (70-110)
[2022-05-15 08:05] LABS: Glucose Point of Care 151 mg/dL (70-110)
[2022-05-15] MEDS: insulin lispro 100 unit/1 mL SUBCUT ×3 (08:11→21:12)
[2022-05-15] MEDS: levothyroxine 150 mcg Tablet PO (09:05)
[2022-05-15] MEDS: losartan 50 mg Tablet 25 MG PO (09:05)
[2022-05-15] MEDS: pantoprazole DR 40 mg Tablet PO (09:05)
[2022-05-15 09:11] LABS: Glucose Point of Care 130 mg/dL (70-110)
[2022-05-15] MEDS: dextrose 5%-sod chloride 0.45% 1,000 ML 75 ML IV ×2 (10:03→21:30)
[2022-05-15 10:06] LABS: Glucose Point of Care 139 mg/dL (70-110)
[2022-05-15 11:14] LABS: Glucose Point of Care 128 mg/dL (70-110)
[2022-05-15 12:04] LABS: Glucose Point of Care 135 mg/dL (70-110)
--- NOTE | 2022-05-15 12:31 | PM.PN ---
Subjective Subjective: This morning anion gap has opened up again, currently she is on D5 and insulin, still complaining of mild pain in her abdomen No active emesis, patient is stating that she had to small episode of dry heaves and emesis in the morning Saturating well on room air Repeating CMP at this point Blood sugar less than 180 Vitals/I&O/Wt Last Vital Signs Temp 98.9 F 05/15/22 07:30 Pulse 84 05/15/22 11:30 Resp 13 05/15/22 11:30 BP 141/85 05/15/22 11:30 Pulse Ox 93 05/15/22 11:30 05/14/22 05/15/22 05/15/22 22:59 06:59 14:59 Intake Total 1166.949 / 1672.885 4631.193 / 2732.142 629.009 / 629.009 Output Total 370 / 370 350 / 720 Balance 796.949 / 643.586 8664.193 / 2012.142 629.009 / 629.009 Weight last 48 hrs Weight 92.533 kg Physical Exam Narrative: Patient to episode of emesis this morning Abdomen is soft mild tenderness in midepigastric region Awake and alert Nonfocal neuro exam He does appear slightly anxious She is on room air, saturating well Nonfocal neuro exam S1, S2 sinus rhythm Data : 05/15/22 04:50 05/15/22 04:50 A&P Assessment and plan (1) UTI (urinary tract infection): Status: Acute (2) DKA (diabetic ketoacidosis): Status: Acute (3) Abdominal pain: Status: Acute (4) Nausea & vomiting: Status: Acute Plan DKA secondary to UTI Gap almost closed &Reopened this morning D5 insulin running at this point Hemoglobin A1c 12 Patient stating that she takes 80 of long-acting insulin along her Premeal Hypothyroid I have increased the dose of levothyroxine UTI: Continue ceftriaxone Hypokalemia: Repleted Hypomagnesemia: Repleted Full code DVT prophylaxis on board Abdominal pain related to ketosis CT abdomen pelvis is unremarkable Attestations Medical Necessity Statement*: Continues icu management Time Spent in Patient Care: 30 Coding Level of Care Code Acute Group Manager for Chg Fwd Diagnoses UTI (urinary tract infection) N39.0 DKA (diabetic ketoacidosis) E11.10 Abdominal pain R10.9 Nausea & vomiting R11.2
[2022-05-15 14:13] LABS: Glucose Point of Care 146 mg/dL (70-110)
[2022-05-15 14:59] LABS: Alanine Aminotransferase 8 U/L (0-33); Albumin Level 3.3 g/dL (3.5-5.2); Alkaline Phosphatase 81 IU/L (35-105); Anion Gap 17.5 (5-19); Aspartate Amino Transferase 11 U/L (0-32); Blood Urea Nitrogen 10 mg/dL (6-20); Calcium 8.5 mg/dL (8.5-10.5); Carbon Dioxide 20 mmol/L (22-29); Chloride 103 mmol/L (98-107); Globulin 2.4 g/dL (1.3-4.6); Glomerular Filtration Rate 74.7 mL/min (90-130); Glucose 143 mg/dL (65-115); Osmolality Calculated 284 mOsm/kg (285-295); Potassium 4.5 mmol/L (3.5-5.1); Sodium 136 mmol/L (136-145); Total Bilirubin 0.2 mg/dL (0.15-1.2); Total Protein 5.7 g/dL (6.6-8.7)
[2022-05-15] MEDS: insulin glargine 100 units/1 mL 70 UNIT SUBCUT (15:30)
--- NOTE | 2022-05-15 15:40 | PC.NURSE ---
Lantus- At [address] Quinteros of Anion Gap at 17.5. Orders received to advance to carb consist diet and to give 70 units of Lantus now. Order followed 1529.
[2022-05-15] MEDS: lidocaine 2% viscous 15 ML, aluminum-mag hydrox-simethicon 30 ML, sucralfate oral liq 1 GM PO (16:03)
[2022-05-15 17:26] LABS: Glucose Point of Care 191 mg/dL (70-110)
[2022-05-15] MEDS: magnesium oxide 400 mg tablet PO (17:29)
[2022-05-15] MEDS: cefTRIAXone 1,000 MG in sodium chloride 0.9% (plus) 50 ML 100 MG IV (19:03)
[2022-05-15 21:08] LABS: Glucose Point of Care 182 mg/dL (70-110)
[2022-05-16] VITALS (40 sets, daily range): BP systolic 132–172; BP diastolic 76–104; PULSE 82–106; RESP 10–18; TEMP 36.7–37.1; O2SAT 91–97
[2022-05-16] MEDS: heparin 5,000 unit/mL INJ 1 mL 5000 UNIT SUBCUT ×2 (04:17→17:30)
[2022-05-16] MEDS: ondansetron 2 mg/ML SDV 2 mL 4 MG IVP ×2 (04:22→21:00)
[2022-05-16 04:24] LABS: Glucose Point of Care 168 mg/dL (70-110)
[2022-05-16 05:40] LABS: Basophils % 0.4 %; Eosinophils # 0.1 10^3/uL (0.0-0.8); Eosinophils % 1.1 %; Hematocrit 40.1 % (37.0-47.0); Hemoglobin 13.8 g/dL (11.5-15.3); Lymphocytes # 2.5 10^3/uL (0.8-4.8); Lymphocytes % 35.6 %; Mean Corpuscular HGB Conc 34.4 g/dL (30.0-36.0); Mean Corpuscular Hemoglobin 28.3 pg (28.0-34.0); Mean Corpuscular Volume 82.2 fl (81-99); Monocytes # 0.5 10^3/uL (0.2-0.9); Monocytes % 6.4 %; Neutrophils # 3.92 10^3/uL (1.8-7.7); Neutrophils % 56.1 %; Nucleated Red Blood Cells % 0 %; Platelet Count 216 10^3/cmm (130-400); Red Blood Count 4.88 10^6/uL (4.1-5.3); Red Cell Distribution Width 12.3 % (12.1-15.1)
[2022-05-16 05:59] LABS: Blood Urea Nitrogen 7 mg/dL (6-20); Calcium 9.2 mg/dL (8.5-10.5); Carbon Dioxide 21 mmol/L (22-29); Chloride 100 mmol/L (98-107); Glomerular Filtration Rate 87.2 mL/min (90-130); Glucose 184 mg/dL (65-115); Magnesium 1.6 mg/dL (1.7-2.3); Osmolality Calculated 279 mOsm/kg (285-295); Sodium 133 mmol/L (136-145)
[2022-05-16 06:03] LABS: Anion Gap 16.2 (5-19); Potassium 4.2 mmol/L (3.5-5.1)
[2022-05-16 08:08] LABS: Glucose Point of Care 192 mg/dL (70-110)
[2022-05-16] MEDS: insulin lispro 100 unit/1 mL SUBCUT ×4 (08:18→20:55)
[2022-05-16] MEDS: polyethylene glycol 3350 Pkt 17 gm PO (08:19)
[2022-05-16] MEDS: pantoprazole DR 40 mg Tablet PO (08:19)
[2022-05-16] MEDS: levothyroxine 150 mcg Tablet PO (08:19)
[2022-05-16] MEDS: losartan 50 mg Tablet 25 MG PO (08:19)
[2022-05-16] MEDS: magnesium oxide 400 mg tablet PO ×2 (08:19→17:31)
[2022-05-16 11:58] LABS: Glucose Point of Care 148 mg/dL (70-110)
--- NOTE | 2022-05-16 13:04 | P.PN_ITS ---
Subjective Subjective: Patient can be transferred out of ICU She was nauseous, Still complaining of left lower quadrant pain Will request KUB Blood sugar is better Potassium 4.2 Discontinue IV fluids She can have consistent carb diet Magnesium 1.6 Vitals/I&O/Wt Last Vital Signs Temp 98.5 F 05/16/22 05:00 Pulse 90 05/16/22 10:00 Resp 14 05/16/22 10:00 BP 167/102 05/16/22 10:00 Pulse Ox 95 05/16/22 10:00 05/15/22 05/16/22 05/16/22 22:59 06:59 14:59 Intake Total 480 / 1435.288 360 / 360 Output Total 1200 / 1200 500 / 1700 450 / 450 Balance -720 / 235.288 -500 / -264.712 -90 / -90 Physical Exam Narrative: Patient is laying supine Abdomen tender on deep palpation midepigastrium left lower quadrant Looks slightly dehydrated Saturating well on room air Hypertensive No signs of edema No active signs of stroke Data : 05/16/22 05:14 05/16/22 05:14 A&P Assessment and plan (1) UTI (urinary tract infection): Status: Acute (2) DKA (diabetic ketoacidosis): Status: Acute (3) Abdominal pain: Status: Acute (4) Nausea & vomiting: Status: Acute Plan DKA: Resolved Hypomagnesemia: Repleted Left lower quadrant pain persistent: We will request KUB Hypothyroidism: Poorly controlled, increase the dose of levothyroxine Hypertensive urgency Discontinue IV fluids, continue losartan, will add amlodipine as well Plan to discharge her tomorrow if stable Still nauseous Consistent carb diet Continue high-dose Lantus and sliding scale Patient lives alone, she did not allow me to talk to her [id number] yet Attestations Medical Necessity Statement*: Transfer out of ICU Time Spent in Patient Care: 30 Coding Level of Care Code Acute Legal Billing Specialist for Felipe Lambert Diagnoses UTI (urinary tract infection) N39.0 DKA (diabetic ketoacidosis) E11.10 Abdominal pain R10.9 Nausea & vomiting R11.2
[2022-05-16] MEDS: cefTRIAXone 1,000 MG in sodium chloride 0.9% (plus) 50 ML 100 MG IV (17:31)
[2022-05-16] MEDS: amlodipine 10 mg Tablet PO (17:31)
[2022-05-16 17:42] LABS: Glucose Point of Care 194 mg/dL (70-110)
--- NOTE | 2022-05-16 18:27 | XRR_ITS ---
PROCEDURE INFORMATION: Exam: XR Abdomen Exam date and time: 05/16/2022 6:56 PM Age: 52 years old Clinical indication: Abdominal pain TECHNIQUE: Imaging protocol: Radiologic exam of the abdomen. Views: Frontal supine view of the abdomen. 1 View. COMPARISON: CT abdomen pelvis con [id number] 05/14/2022 12:11 PM FINDINGS: Diaphragm: There is mild asymmetric elevation of the right hemidiaphragm. Gastrointestinal tract: Bowel gas pattern is unremarkable. No sign of obstruction. Organs: Cholecystectomy clips noted. Bones/joints: There is mild degenerative disease in the lumbar spine. XR/XR KUB portable [id number] IMPRESSION: No acute findings.
--- NOTE | 2022-05-16 18:45 | PC.NURSE ---
Pt was transferred to [facility] at around 1830 via wheelchair. All belongings taken to room. No N/V this shift.
[2022-05-16 20:41] LABS: Glucose Point of Care 239 mg/dL (70-110)
[2022-05-16] MEDS: insulin glargine 100 units/1 mL 70 UNIT SUBCUT (20:55)
[2022-05-17] VITALS (8 sets, daily range): BP systolic 138–160; BP diastolic 76–98; PULSE 94–105; RESP 16–18; TEMP 36.7–37.2; O2SAT 92–95
[2022-05-17] MEDS: heparin 5,000 unit/mL INJ 1 mL 5000 UNIT SUBCUT (05:18)
[2022-05-17 05:41] LABS: Basophils % 0.5 %; Eosinophils # 0.1 10^3/uL (0.0-0.8); Eosinophils % 1.5 %; Hematocrit 40.2 % (37.0-47.0); Hemoglobin 13.9 g/dL (11.5-15.3); Lymphocytes # 2.7 10^3/uL (0.8-4.8); Lymphocytes % 36.2 %; Mean Corpuscular HGB Conc 34.6 g/dL (30.0-36.0); Mean Corpuscular Hemoglobin 28.7 pg (28.0-34.0); Mean Corpuscular Volume 82.9 fl (81-99); Mean Platelet Volume 10.6 fL (7.4-10.4); Monocytes # 0.6 10^3/uL (0.2-0.9); Monocytes % 7.3 %; Neutrophils # 4.09 10^3/uL (1.8-7.7); Neutrophils % 54.2 %; Nucleated Red Blood Cells % 0 %; Platelet Count 226 10^3/cmm (130-400); Red Blood Count 4.85 10^6/uL (4.1-5.3); Red Cell Distribution Width 12.3 % (12.1-15.1); White Blood Count 7.5 10^3/uL (4.0-10.0)
[2022-05-17 06:10] LABS: Alanine Aminotransferase 10 U/L (0-33); Albumin Level 3.4 g/dL (3.5-5.2); Alkaline Phosphatase 93 IU/L (35-105); Anion Gap 14.2 (5-19); Aspartate Amino Transferase 13 U/L (0-32); Blood Urea Nitrogen 5 mg/dL (6-20); Calcium 9.6 mg/dL (8.5-10.5); Carbon Dioxide 25 mmol/L (22-29); Chloride 98 mmol/L (98-107); Globulin 2.7 g/dL (1.3-4.6); Glomerular Filtration Rate 87.2 mL/min (90-130); Glucose 132 mg/dL (65-115); Osmolality Calculated 277 mOsm/kg (285-295); Potassium 3.2 mmol/L (3.5-5.1); Sodium 134 mmol/L (136-145); Total Bilirubin 0.2 mg/dL (0.15-1.2); Total Protein 6.1 g/dL (6.6-8.7)
[2022-05-17 06:55] LABS: Glucose Point of Care 137 mg/dL (70-110)
[2022-05-17] MEDS: magnesium oxide 400 mg tablet PO (10:48)
[2022-05-17] MEDS: amlodipine 10 mg Tablet PO ×3 (10:49→10:59)
[2022-05-17] MEDS: pantoprazole DR 40 mg Tablet PO (10:49)
[2022-05-17] MEDS: levothyroxine 150 mcg Tablet PO (10:55)
[2022-05-17] MEDS: losartan 50 mg Tablet PO (10:56)
[2022-05-17 11:30] LABS: Glucose Point of Care 288 mg/dL (70-110)
--- NOTE | 2022-05-17 12:40 | P.DS_ITS ---
Discharge Providers Date of Admission: 05/14/22 14:16 Date of Discharge: May 17, 2022 Attending Provider at Admission: Remedios Quinteros MD Attending Provider at Discharge: Remedios Quinteros MD Primary Care Provider: Marlene Santamaria NP Diagnoses at Discharge Discharge Diagnosis (1) UTI (urinary tract infection): Status: Acute (2) DKA (diabetic ketoacidosis): Status: Acute (3) Abdominal pain: Status: Acute (4) Nausea & vomiting: Status: Acute Reason for Visit Reason for Visit: RLQ PAIN/ HIGH BLOOD SUGAR Hospital Course Hospital Course 52-year-old female who was admitted for management of recurrent nausea vomiting. She was diagnosed with DKA, CT abdomen pelvis unremarkable, she has been taking 80 units of long-acting insulin at home along short acting scheduled Premeal, glipizide and Tradjenta. His hemoglobin A1c was 12. Her admission specialist is in [place]. DKA resolved. She kept complaining of recurrent nausea and emesis repeat KUB did not show any acute abnormalities. She most likely has diabetic gastroparesis. I will give her Reglan and Zofran at the time of discharge. Electrolytes were replenished. For hypertension we will do losartan, amlodipine. I will give her magnesium and potassium medication. She received ceftriaxone during hospitalization. I will give her 3 more days of Levaquin. I have increased the dose of Lantus to 83 units daily. Close follow-up with PCP. She is tolerating her diet at the time of discharge. High risk for readmissions. She may benefit from gastric emptying study for objective evidence of gastroparesis Physical Exam Narrative: Abdomen is soft mild tenderness in midepigastric region Awake and alert Nonfocal neuro exam He does appear slightly anxious She is on room air, saturating well Nonfocal neuro exam S1, S2 sinus rhythm ? Discharge Data Studies Completed and Pending Completed Studies During Hospitalization Category Date Time Status CT abdomen pelvis wo con [id number] Urgent Cat Scan 05/14/22 11:40 Completed XR KUB portable [id number] Routine Exams 05/16/22 18:27 Completed Radiology Impressions Abdomen/Pelvis CT 05/14/22 11:40 IMPRESSION: No acute findings. KUB X-Ray 05/16/22 18:27 IMPRESSION: No acute findings. Laboratory Results WBC 7.5 10^3/uL (4.0-10.0) 05/17/22 05:22 RBC 4.85 10^6/uL (4.1-5.3) 05/17/22 05:22 Hgb 13.9 g/dL (11.5-15.3) 05/17/22 05:22 Hct 40.2 % (37.0-47.0) 05/17/22 05:22 MCV 82.9 fl (81-99) 05/17/22 05:22 MCH 28.7 pg (28.0-34.0) 05/17/22 05:22 MCHC 34.6 g/dL (30.0-36.0) 05/17/22 05:22 RDW 12.3 % (12.1-15.1) 05/17/22 05:22 Plt Count 226 10^3/cmm (130-400) 05/17/22 05:22 MPV 10.6 fL (7.4-10.4) H 05/17/22 05:22 Neut % (Auto) 54.2 % 05/17/22 05:22 Lymph % (Auto) 36.2 % 05/17/22 05:22 [place] % (Auto) 7.3 % 05/17/22 05:22 Eos % (Auto) 1.5 % 05/17/22 05:22 Baso % (Auto) 0.5 % 05/17/22 05:22 Neut # (Auto) 4.09 10^3/uL (1.8-7.7) 05/17/22 05:22 Lymph # (Auto) 2.7 10^3/uL (0.8-4.8) 05/17/22 05:22 [place] # (Auto) 0.6 10^3/uL (0.2-0.9) 05/17/22 05:22 Eos # (Auto) 0.1 10^3/uL (0.0-0.8) 05/17/22 05:22 Baso # (Auto) 0.0 10^3/uL (0.0-0.1) 05/17/22 05:22 Nucleated RBC % (auto) 0 % 05/17/22 05:22 Nucleated RBCs # 0.0 /100WBC 05/17/22 05:22 Specimen Type Arterial 05/14/22 12:49 Sample Site Radial, left 05/14/22 12:49 ABG pH 7.30 (7.35-7.45) L 05/14/22 12:49 ABG pCO2 33.3 mmHg (35-45) L 05/14/22 12:49 ABG pO2 76.7 mmHg (80.0-100.0) L 05/14/22 12:49 ABG HCO3 16.5 mmol/L (22-26) L 05/14/22 12:49 ABG O2 Saturation 94.0 05/14/22 12:49 ABG Base Excess -8.7 mmol/L (-2.0-2.0) L 05/14/22 12:49 Laz Test Pos 05/14/22 12:49 A-a O2 Gradient 4.1 mmHg (5-10) L 05/14/22 12:49 Hematocrit 47.1 % (37-47) H 05/14/22 12:49 Hgb O2 Saturation 93.4 % (95-100) L 05/14/22 12:49 Carboxyhemoglobin 0.1 %THgb (0.4-20.1) L 05/14/22 12:49 Methemoglobin 0.6 % (0.4-1.5) 05/14/22 12:49 Total Hemoglobin 15.4 g/dL (12-16) 05/14/22 12:49 Sodium 132.0 mmol/L (131-143) 05/14/22 12:49 Potassium 4.3 mmol/L (3.5-5.0) 05/14/22 12:49 Glucose 345.0 mg/dL (70-115) H 05/14/22 12:49 Ionized Calcium 1.4 mmol/L (1.1-1.4) 05/14/22 12:49 O2 Delivery Device Room air 05/14/22 12:49 FiO2 21.0 % 05/14/22 12:49 Calculus Professor ID Cak 05/14/22 12:49 Sodium 134 mmol/L (136-145) L 05/17/22 05:22 Potassium 3.2 mmol/L (3.5-5.1) L 05/17/22 05:22 Chloride 98 mmol/L (98-107) 05/17/22 05:22 Carbon Dioxide 25 mmol/L (22-29) 05/17/22 05:22 Anion Gap 14.2 (5-19) 05/17/22 05:22 BUN 5 mg/dL (6-20) L 05/17/22 05:22 Creatinine 0.7 mg/dL (0.5-0.9) 05/17/22 05:22 GFR Calculation 87.2 mL/min (90-130) L 05/17/22 05:22 Glucose 132 mg/dL (65-115) H 05/17/22 05:22 POC Glucose 288 mg/dL (70-110) H 05/17/22 11:04 Estimat Average Glucose 301 05/14/22 16:51 Hemoglobin A1c 12.1 % (4.0-6.0) H 05/14/22 16:51 Calculated Osmolality 277 mOsm/kg (285-295) L 05/17/22 05:22 Lactic Acid 1.1 mmol/L (0.5-2.2) 05/14/22 13:49 Lactate 0.7 mmol/L (0.5-2.2) 05/15/22 04:50 Calcium 9.6 mg/dL (8.5-10.5) 05/17/22 05:22 Phosphorus 2.8 mg/dL (2.5-4.5) 05/15/22 00:29 Magnesium 1.6 mg/dL (1.7-2.3) L 05/16/22 05:14 Total Bilirubin 0.2 mg/dL (0.15-1.2) 05/17/22 05:22 AST 13 U/L (0-32) 05/17/22 05:22 ALT 10 U/L (0-33) 05/17/22 05:22 Alkaline Phosphatase 93 IU/L (35-105) 05/17/22 05:22 Troponin T Baseline 21 ng/L (0-10) H 05/14/22 11:28 Troponin T 120 Minute 16.84 ng/L (0-10) H 05/14/22 13:49 Delta Troponin T -4.16 ABS# (0-10) L 05/14/22 13:49 C-Reactive Protein 3.0 mg/L (0.0-4.9) 05/15/22 04:50 C-Reactive Protein Cancelled 05/15/22 04:50 Total Protein 6.1 g/dL (6.6-8.7) L 05/17/22 05:22 Albumin 3.4 g/dL (3.5-5.2) L 05/17/22 05:22 Globulin 2.7 g/dL (1.3-4.6) 05/17/22 05:22 Triglycerides 202 mg/dL (0-150) H 05/14/22 19:30 Cholesterol 199 mg/dL (0-200) 05/14/22 19: LDL Cholesterol, Calc 118 mg/dL (50-129) 05/14/22 19:30 HDL Cholesterol 41 mg/dL (60-100) L 05/14/22 19: LDL/HDL Ratio 2.88 RATIO (0.00-3.22) 05/14/22 19: Cholesterol/HDL Ratio 4.85 mg/dL (0.0-4.40) H 05/14/22 19:30 Lipase 17 U/L (13-60) 05/14/22 11:28 Procalcitonin 0.06 ng/mL (0-0.5) 05/14/22 13:49 TSH 18.04 uIU/mL (0.27-4.20) H 05/14/22 16:51 Free T4 0.64 ng/dL (0.82-1.77) L 05/14/22 19:30 Urine Color Yellow (Yellow) 05/14/22 19:20 Urine Appearance Hazy (CLEAR) A 05/14/22 19:20 Urine pH 5 (5-7) 05/14/22 19:20 Ur Specific [place] 1.025 (1.005-1.030) 05/14/22 19:20 Urine Protein 3+ (Negative) H 05/14/22 19:20 Urine Glucose (UA) 4+ (Normal) H 05/14/22 19:20 Urine Ketones 3+ (Negative) H 05/14/22 19:20 Urine Blood Neg (Negative) 05/14/22: Urine Nitrate Negative (Negative) 05/14/22 19:20 Urine Bilirubin 1+ (Negative) H 05/14/22 19:20 Urine Urobilinogen Norm mg/dL (Negative) 05/14/22 19: Ur Leukocyte Esterase 2+ (Negative) H 05/14/22 19:20 Urine RBC 0-4 /hpf (0-2) H 05/14/22 19:20 Urine WBC 15-25 /hpf (0-5) H 05/14/22 19:20 Ur Squamous Epith Cells 25-40 /hpf (0-5) H 05/14/22 19:20 Amorphous Sediment Not Reportable 05/14/22 19:20 Urine Bacteria 1+ /hpf (NONE) H 05/14/22 19:20 Urine Mucus Trace /hpf 05/14/22 19:20 Serum Ketones Positive (Negative) H 05/14/22 11:28 Vitals Last Vital Signs Temp 98.3 F 05/17/22 12:00 Pulse 98 05/17/22 12:00 Resp 18 05/17/22 12:00 BP 158/98 05/17/22 12:00 Pulse Ox 95 05/17/22 12:00 Discharge Plan Discharge Patient Disposition: Home Condition: Stable Prescriptions: New losartan 50 mg Tablet 50 mg PO DAILY Qty: 60 2RF Reglan 5 mg tablet 5 mg PO DAILY PRN (Reason: nausea) Qty: 20 0RF ondansetron HCl 4 mg tablet 4 mg PO DAILY PRN (Reason: nausea and vomiting) 4 Days Qty: 20 0RF amlodipine 10 mg Tablet 10 mg PO DAILY Qty: 60 2RF Magnesium Oxide [Magox] 400 mg PO BID Qty: 20 0RF potassium chloride 20 mEq tablet extended release 20 meq PO DAILY Qty: 5 0RF Continued cetirizine 10 mg Tablet 10 mg PO DAILY 0RF glipizide 10 mg tablet 15 mg PO BID 0RF clobetasol 0.05 % Cream 1 applic TOPICAL BID 0RF omeprazole 40 mg capsule,delayed release(DR/EC) 40 mg PO DAILY 0RF tramadol 50 mg Tablet 50 mg PO Q6H PRN (Reason: Pain) 0RF ondansetron 8 mg tablet,disintegrating 8 mg PO BID 0RF pantoprazole 40 mg Tablet,Delayed Release (Dr/Ec) 40 mg PO DAILY 0RF losartan 25 mg Tablet 25 mg PO DAILY 0RF docusate sodium 100 mg Capsule 100 mg PO TID PRN (Reason: Constipation) 0RF gabapentin 300 mg capsule 300 mg PO BID 0RF sertraline 50 mg tablet 50 mg PO DAILY 0RF rosuvastatin 20 mg tablet 40 mg PO DAILY 0RF duloxetine 60 mg capsule,delayed release(DR/EC) 60 mg PO DAILY 0RF Mucinex 600 mg Tablet Extended Release 12hr 600 mg PO Q12H PRN (Reason: Congestion) 0RF Humalog KwikPen Insulin 200 unit/mL (3 mL) insulin pen See Rx Instructions .ROUTE .COMPLEX 0RF Rx Instructions: sliding scale Ozempic 1 mg/dose (4 mg/3 mL) pen injector 0.25 mg SUBCUT Q7D 0RF albuterol sulfate 90 mcg/actuation HFA aerosol inhaler 2 puff INHALATION Q4H PRN (Reason: Shortness Of Breath) 0RF Tradjenta 5 mg tablet 5 mg PO DAILY Qty: 60 0RF Changed levothyroxine 125 mcg capsule 150 mcg PO DAILY Qty: 30 2RF Tresiba FlexTouch U-200 200 unit/mL (3 mL) Insulin Pen 83 unit SUBCUT BEDTIME Qty: 5 2RF Discontinued diclofenac potassium 50 mg tablet 50 mg PO BID 0RF Discharge Orders: Discharge Order (Routine); Ordered 05/17/22 Ordered By: Remedios Quinteros Referrals: Marlene Santamaria NP [Primary Care Provider] - 1-3 days Discharge Diet: Diabetic Discharge Activity: Increase activity as tolerated Patient Instructions: Abdominal Pain (ED), Opioid Safety Discharge Attestations Time Spent in Discharge Care*: less than 30 min Quality Metrics Clinical Quality Measures [ No reported AMI, CVA or VTE this stay] Coding Level of Care Code Acute Chg FW DC note Diagnoses UTI (urinary tract infection) N39.0 DKA (diabetic ketoacidosis) E11.10 Abdominal pain R10.9 Nausea & vomiting R11.2
[2022-05-17] MEDS: insulin lispro 100 unit/1 mL SUBCUT (12:44)
--- NOTE | 2022-05-17 12:59 | PC.SOCIAL ---
IMM update IMM updated with patient. Verbalized an understanding. Copy PG 2 provided. Initialled, dated, timed,and placed in chart.
== END 2022-05-18 06:53 | disposition home or self-care (01) | DRG 638 ==
LOC: ER 14:34 → ICU 16:28 → MEDSURG 05-16 18:21
PROVIDERS: Admitting Provider Internal Medicine; Emergency Provider Emergency Medicine; PCP Nurse Practitioner Family; Visit Provider Internal Medicine
DX: E11.10 Type 2 diabetes mellitus with ketoacidosis without coma (principal); N39.0 Urinary tract infection, site not specified; Z68.41 Body mass index [BMI] 40.0-44.9, adult; Z79.899 Other long term (current) drug therapy; Z79.4 Long term (current) use of insulin; Z79.84 Long term (current) use of oral hypoglycemic drugs; E11.43 Type 2 diabetes mellitus with diabetic autonomic (poly)neuropathy; K31.84 Gastroparesis; E66.01 Morbid (severe) obesity due to excess calories; E03.9 Hypothyroidism, unspecified; N18.9 Chronic kidney disease, unspecified; E11.22 Type 2 diabetes mellitus with diabetic chronic kidney disease; I12.9 Hypertensive chronic kidney disease with stage 1 through stage 4 chronic kidney disease, or unspecified chronic kidney disease; E87.6 Hypokalemia; E83.42 Hypomagnesemia
CPT/HCPCS: 36415; 36416; 36600; 74018; 74176; 80048; 80051; 80053; 80061; 81001; 82009; 82330; 82805; 82962; 83036; 83605; 83690; 83735; 84100; 84145; 84439; 84443; 84484; 85025; 86140; 93005; 96360; 96361; 96372; 99285; J0696; J1644; J1815 ×2; J2405; J3475; J3480; J7030; J7050; J7799

== ENCOUNTER 2022-06-06 07:23 | Emergency (ER) | payer MEDICARE, MEDICAID, SELFPAY ==
[2022-06-06] VITALS (7 sets, daily range): BP systolic 127–190; BP diastolic 82–119; PULSE 84–105; RESP 14–16; TEMP 36.9; O2SAT 90–96; BMI 41.2
--- NOTE | 2022-06-06 07:25 | W.ED.ABDPA2 ---
HPI - Abdominal Pain General: Chief Complaint: General Medical Stated Complaint: RIGHT FLANK PAIN Time Seen by Provider: 06/06/22 07:24 History of Present Illness: Ms. Banks is a 52-year-old lady with significant past medical history of diabetes who presents to the emergency department due to abdominal discomfort and flank pain. She reports onset of symptoms approximately 4 days ago. Notes shortly she said that there was no specific inciting event however she later clarified that it may have started after rolling over and twisting strange in bed. Since that time she has had near constant pain which is sharp in the right lower rib area and radiating into the abdomen. Over the course of symptoms has persisted. Worse with movement. She was previously hospitalized and had epigastric pain at that time which has persisted but no other new GI symptoms. No urinary symptoms. No other specific changes in health, exacerbating, or alleviating factors identified. Onset (ago): day(s) Pain Consistency: constant Location: R flank Quality: sharp Exacerbating factors: movement Review of Systems General: Reports: 10 or more systems reviewed and unremarkable except in HPI and below PFSH ED PFSH: Medical History Abdominal pain Chronic kidney disease Diabetes type 2, controlled Hyperlipidemia Hypertension Hypothyroidism Nausea & vomiting Surgical History History of colonoscopy 10+yrs History of laparoscopic cholecystectomy 1997 Family History Other Cancer Chronic kidney disease (CKD) Dementia Diabetes Stroke Denies family history of CAD (coronary artery disease) Anesthesia complication Social History Smoking and tobacco status: never smoked Alcohol intake: never Lives independently: Yes Household members: none Physical Exam Const: COMMON NORMALS: alert GENERAL APPEARANCE: cooperative and well developed HENMT: COMMON NORMALS: normocephalic and atraumatic HEAD & SCALP: normocephalic and atraumatic Eye: COMMON NORMALS: conjunctivae normal CONJUNCTIVA: Yes conjunctivae normal SCLERA: sclerae normal Neck/C-Spine: COMMON NORMALS: supple GENERAL: Yes trachea midline Resp: COMMON NORMALS: normal respiratory effort and clear to auscultation bilaterally EFFORT & INSPECTION: Yes able to speak in complete sentences AUSCULTATION: clear to auscultation bilaterally Cardio: COMMON NORMALS: regular rhythm RATE: tachycardic RHYTHM: regular rhythm GI: COMMON NORMALS: Soft to palpation PALPATION: Yes Soft to palpation, Yes Tenderness to palpation present (GI), No Guarding due to palpation present (GI), No Rigid due to palpation and No Rebound tenderness present PERCUSSION: normal to percussion Extremity: GENERAL: Yes normal exam except as noted and No edema Neuro: COMMON NORMALS: moves all extremities SENSORIUM/ORIENTATION: Yes alert and No Orientation impaired Psych: COMMON NORMALS: mental status grossly normal and Normal thought process present THOUGHT PROCESS: Normal thought process present Course ED course: - Patient was seen and evaluated by me at bedside - Patient placed on cardiac monitors, IV access obtained - Initial evaluation notable for exam as above - Labs and xray personally interpreted by me - Fluids, analgesia, and antiemetic given - Labs notable for no leukocytosis, normal hemoglobin. Metabolic end with mild elevation in creatinine compared to prior. Transaminitis of uncertain etiology. Urinalysis without evidence of urinary tract infection. - Imaging notable for constipation on abdomen and pelvis CT without other acute inflammatory pathology to explain symptoms. no lobar consolidation or pneumothorax on chest x-ray. - Upon serial reexamination after treatment the patient was improved - Based on patient history, evaluation, and testing as interpreted the most likely cause of the patient's condition is abdominal pain of uncertain etiology possibly related to constipation. - The results of ED evaluation were discussed with the patient including prescriptions and/or symptomatic cares (if applicable) including appropriate and responsible use, followup plan, and return precautions. The patient verbalized understanding and felt safe for discharge. - Patient discharged in satisfactory condition. Note: Click bubbles or prepopulated borjas in note writing are used for assistance with data collection and billing and are inherently more limited than narrative and other text portions of this note. Please use narrative for additional clinical history and defer to narrative/free test for any case of contradictory information. If information appears in only free text or click bubble it should be considered present or absent as reported. Please contact note headline writer for clarifications of clinical information or contradictory information. MDM is a brief summary, contradictory or erroneous seeming information should be clarified and full note should be reviewed. Vital Signs: Vital signs: Vital Signs Temperature 98.5 F 06/06/22 07:27 Pulse Rate 93 06/06/22 12:29 Respiratory Rate 16 06/06/22 12:29 Blood Pressure 152/90 06/06/22 12:29 Pulse Oximetry 96 06/06/22 12:29 MDM - Abdominal Pain Medical Decision Making 52-year-old lady presenting with abdominal pain. No leukocytosis. CT abdomen and pelvis without obvious cause of patient's symptoms. Patient improved with treatment and satisfactory for outpatient management. Medical Records I reviewed the patient's medical records. Lab Data I reviewed the patient's lab results. : 06/06/22 07:55 06/06/22 07:55 Labs/Radiology: Radiology Impressions Chest X-Ray 06/06/22 07:41 IMPRESSION: Mild left medial basilar subsegmental atelectasis. Abdomen/Pelvis CT 06/06/22 09:13 IMPRESSION: 1. Prior cholecystectomy. 2. Abdominal colonic constipation. 3. Hiatal hernia. 4. Pelvic floor relaxation with small peritoneocele. 5. Coronary atherosclerosis. Laboratory Results WBC 8.0 10^3/uL (4.0-10.0) 06/06/22 07:55 RBC 4.61 10^6/uL (4.1-5.3) 06/06/22 07:55 Hgb 13.4 g/dL (11.5-15.3) 06/06/22 07:55 Hct 41.2 % (37.0-47.0) 06/06/22 07:55 MCV 89.4 fl (81-99) 06/06/22 07:55 MCH 29.1 pg (28.0-34.0) 06/06/22 07:55 MCHC 32.5 g/dL (30.0-36.0) 06/06/22 07:55 RDW 12.9 % (12.1-15.1) 06/06/22 07:55 Plt Count 247 10^3/cmm (130-400) 06/06/22 07:55 MPV 10.5 fL (7.4-10.4) H 06/06/22 07:55 Neut % (Auto) 62.7 % 06/06/22 07:55 Lymph % (Auto) 26.0 % 06/06/22 07:55 [place] % (Auto) 6.6 % 06/06/22 07:55 Eos % (Auto) 3.8 % 06/06/22 07:55 Baso % (Auto) 0.4 % 06/06/22 07:55 Neut # (Auto) 5.02 10^3/uL (1.8-7.7) 06/06/22 07:55 Lymph # (Auto) 2.1 10^3/uL (0.8-4.8) 06/06/22 07:55 [place] # (Auto) 0.5 10^3/uL (0.2-0.9) 06/06/22 07:55 Eos # (Auto) 0.3 10^3/uL (0.0-0.8) 06/06/22 07:55 Baso # (Auto) 0.0 10^3/uL (0.0-0.1) 06/06/22 07:55 Nucleated RBC % (auto) 0 % 06/06/22 07:55 Nucleated RBCs # 0.0 /100WBC 06/06/22 07:55 Sodium 137 mmol/L (136-145) 06/06/22 07:55 Potassium 4.1 mmol/L (3.5-5.1) 06/06/22 07:55 Chloride 99 mmol/L (98-107) 06/06/22 07:55 Carbon Dioxide 26 mmol/L (22-29) 06/06/22 07:55 Anion Gap 16.1 (5-19) 06/06/22 07:55 BUN 12 mg/dL (6-20) 06/06/22 07:55 Creatinine 1.1 mg/dL (0.5-0.9) H 06/06/22 07:55 GFR Calculation 51.8 mL/min (90-130) L 06/06/22 07:55 Glucose 128 mg/dL (65-115) H 06/06/22 07:55 POC Glucose 132 mg/dL (70-110) H 06/06/22 08:12 Calculated Osmolality 285 mOsm/kg (285-295) 06/06/22 07:55 Calcium 9.3 mg/dL (8.5-10.5) 06/06/22 07:55 Total Bilirubin 0.2 mg/dL (0.15-1.2) 06/06/22 07:55 AST 73 U/L (0-32) H 06/06/22 07:55 ALT 188 U/L (0-33) H 06/06/22 07:55 Alkaline Phosphatase 190 IU/L (35-105) H 06/06/22 07:55 Total Protein 6.5 g/dL (6.6-8.7) L 06/06/22 07:55 Albumin 3.9 g/dL (3.5-5.2) 06/06/22 07:55 Globulin 2.6 g/dL (1.3-4.6) 06/06/22 07:55 Lipase 29 U/L (13-60) 06/06/22 07:55 Urine Color Yellow (Yellow) 06/06/22 08:15 Urine Appearance Clear (CLEAR) 06/06/22 08:15 Urine pH 5 (5-7) 06/06/22 08:15 Ur Specific [place] 1.015 (1.005-1.030) 06/06/22 08:15 Urine Protein 1+ (Negative) H 06/06/22 08:15 Urine Glucose (UA) Norm (Normal) 06/06/22 08:15 Urine Ketones Negative (Negative) 06/06/22 08:15 Urine Blood Neg (Negative) 06/06/22 08:15 Urine Nitrate Negative (Negative) 06/06/22 08:15 Urine Bilirubin Neg (Negative) 06/06/22 08:15 Urine Urobilinogen Norm mg/dL (Negative) 06/06/22 08:15 Ur Leukocyte Esterase Negative (Negative) 06/06/22 08:15 Urine RBC None /hpf (0-2) 06/06/22 08:15 Urine WBC Rare /hpf (0-5) 06/06/22 08:15 Ur Squamous Epith Cells 5-10 /hpf (0-5) H 06/06/22 08:15 Amorphous Sediment Not Reportable 06/06/22 08:15 Urine Bacteria Trace /hpf (NONE) 06/06/22 08:15 Urine Mucus Trace /hpf 06/06/22 08:15 Discharge Plan Discharge Patient Disposition: Home Clinical Impression: Abdominal pain, Transaminitis, Dehydration, Constipation Condition: Stable Prescriptions: New Miralax 17 gram powder in packet 17 g PO BID Qty: 30 0RF ondansetron 4 mg tablet,disintegrating 4 mg PO TID PRN (Reason: nausea and vomiting) Qty: 15 0RF No Action pantoprazole 40 mg Tablet,Delayed Release (Dr/Ec) 40 mg PO DAILY 0RF gabapentin 300 mg capsule 300 mg PO BID 0RF sertraline 50 mg tablet 50 mg PO DAILY 0RF rosuvastatin 20 mg tablet 40 mg PO DAILY 0RF duloxetine 60 mg capsule,delayed release(DR/EC) 60 mg PO DAILY 0RF Humalog KwikPen Insulin 200 unit/mL (3 mL) insulin pen See Rx Instructions .ROUTE .COMPLEX 0RF Rx Instructions: sliding scale Ozempic 1 mg/dose (4 mg/3 mL) pen injector 0.25 mg SUBCUT Q7D 0RF albuterol sulfate 90 mcg/actuation HFA aerosol inhaler 2 puff INHALATION Q4H PRN (Reason: Shortness Of Breath) 0RF losartan 50 mg Tablet 50 mg PO DAILY Qty: 60 2RF amlodipine 10 mg Tablet 10 mg PO DAILY Qty: 60 2RF Tradjenta 5 mg tablet 5 mg PO DAILY Qty: 60 0RF Tresiba FlexTouch U-200 200 unit/mL (3 mL) Insulin Pen 83 unit SUBCUT BEDTIME Qty: 5 2RF ondansetron 4 mg Tablet,Disintegrating 4 mg PO Q6H PRN (Reason: Nausea) 0RF metoclopramide HCl 10 mg tablet 10 mg PO Q4H 0RF magnesium oxide 400 mg magnesium Capsule 400 mg PO BID 0RF levothyroxine 125 mcg capsule 125 mcg PO DAILY 0RF Discharge Orders: Discharge ED (Routine); Ordered 06/06/22 Ordered By: Aftab Alexandra Referrals: Marlene Santamaria, PRETZEL COOKER [Nurse Practitioner] - Discharge Diet: Advance as tolerated and Clear Liquid Discharge Activity: Increase activity as tolerated Patient Instructions: Constipation (ED), Abdominal Pain (ED), Opioid Safety Activity Restrictions/Additional Instructions: Thank you for visiting the emergency department. You were seen and evaluated for abdominal pain. The exact cause your symptoms is unclear though likely related or at least partially related to constipation. I recommend home treatment with MiraLAX 1 capful each hour for 4 hours followed by 3 times per day for 2 days. Then adjust as needed for applesauce consistency stools multiple times per day. If this does not cause adequate bowel movements please take magnesium citrate. Please drink electrolyte solution to ensure that you are staying hydrated. Please watch for signs of dehydration. As discussed you do have mild elevation in your liver enzymes, the exact cause of this is unclear. Please follow-up with your primary care provider for recheck of these. Please watch for signs of worsening right upper quadrant pain, any evidence of jaundice, or significant changes in color of urine or stool. Please return to the emergency department for uncontrolled symptoms or anything else that you are concerned about a feel needs emergency department evaluation. Coding Level of Care Code ED [employer] Attendant for Erickg Fwd Exam Comprehensive
--- NOTE | 2022-06-06 07:41 | XRR_ITS ---
PROCEDURE INFORMATION: Exam: XR Chest Exam date and time: 06/06/2022 8:08 AM Age: 52 years old Clinical indication: Pain; Right-sided; Additional info: R lower chest discomfort TECHNIQUE: Imaging protocol: Radiologic exam of the chest. Views: 1 view. Other technique: Frontal portable upright view of the chest. COMPARISON: CR (ABDOMEN, ) 05/16/2022 6:56 PM FINDINGS: Lungs: Mild left medial basilar subsegmental atelectasis. The lungs are otherwise peripherally clear bilaterally. The pulmonary vasculature is normal. Pleural spaces: No pleural effusion. No pneumothorax. Heart/Mediastinum: The heart is normal in size and contour. Bones/joints: Right lateral vertebral body marginal osteophytes are noted at multiple thoracic spinal levels. XR/XR chest 1V portable [id number] IMPRESSION: Mild left medial basilar subsegmental atelectasis.
[2022-06-06] MEDS: morphine 4 mg/mL SDV 1 mL IVP (07:58)
[2022-06-06 08:01] LABS: Basophils % 0.4 %; Eosinophils # 0.3 10^3/uL (0.0-0.8); Eosinophils % 3.8 %; Hematocrit 41.2 % (37.0-47.0); Hemoglobin 13.4 g/dL (11.5-15.3); Lymphocytes # 2.1 10^3/uL (0.8-4.8); Mean Corpuscular HGB Conc 32.5 g/dL (30.0-36.0); Mean Corpuscular Hemoglobin 29.1 pg (28.0-34.0); Mean Corpuscular Volume 89.4 fl (81-99); Mean Platelet Volume 10.5 fL (7.4-10.4); Monocytes # 0.5 10^3/uL (0.2-0.9); Monocytes % 6.6 %; Neutrophils # 5.02 10^3/uL (1.8-7.7); Neutrophils % 62.7 %; Nucleated Red Blood Cells % 0 %; Platelet Count 247 10^3/cmm (130-400); Red Blood Count 4.61 10^6/uL (4.1-5.3); Red Cell Distribution Width 12.9 % (12.1-15.1)
[2022-06-06 08:15] LABS: Glucose Point of Care 132 mg/dL (70-110)
[2022-06-06 08:22] LABS: Alanine Aminotransferase 188 U/L (0-33); Albumin Level 3.9 g/dL (3.5-5.2); Alkaline Phosphatase 190 IU/L (35-105); Anion Gap 16.1 (5-19); Aspartate Amino Transferase 73 U/L (0-32); Blood Urea Nitrogen 12 mg/dL (6-20); Calcium 9.3 mg/dL (8.5-10.5); Carbon Dioxide 26 mmol/L (22-29); Chloride 99 mmol/L (98-107); Globulin 2.6 g/dL (1.3-4.6); Glomerular Filtration Rate 51.8 mL/min (90-130); Glucose 128 mg/dL (65-115); Lipase 29 U/L (13-60); Osmolality Calculated 285 mOsm/kg (285-295); Potassium 4.1 mmol/L (3.5-5.1); Sodium 137 mmol/L (136-145); Total Bilirubin 0.2 mg/dL (0.15-1.2); Total Protein 6.5 g/dL (6.6-8.7)
[2022-06-06 09:10] LABS: Urine Appearance Clear (CLEAR); Urine Color Yellow (Yellow)
[2022-06-06 09:11] LABS: Add Urine Microscopic? YES; Bilirubin Urine Neg (Negative); Blood Urine Neg (Negative); Glucose Urine UA Norm (Normal); Ketones Urine Negative (Negative); Leukocyte Esterase Urine Negative (Negative); Nitrate Urine Negative (Negative); Protein Urine 1+ (Negative); Specific Gravity, Urine 1.015 (1.005-1.030); Urobilinogen Urine Norm (Negative); pH Urine 5 (5-7)
[2022-06-06 09:13] LABS: Bacteria Urine TRACE /hpf; Mucus Urine TRACE /hpf; WBC Urine RARE /hpf (0-5)
--- NOTE | 2022-06-06 09:13 | CTR_ITS ---
PROCEDURE INFORMATION: Exam: CT Abdomen And Pelvis Without Contrast Exam date and time: 06/06/2022 10:06 AM Age: 52 years old Clinical indication: Abdominal pain; Flank; Right; Prior surgery; Surgery type: Gb; Additional info: R flank pain TECHNIQUE: Imaging protocol: Computed tomography of the abdomen and pelvis without contrast. Radiation optimization: All CT scans at this facility use at least one of these dose optimization techniques: automated exposure control; mA and/or kV adjustment per patient size (includes targeted exams where dose is matched to clinical indication); or iterative reconstruction. COMPARISON: CT abdomen pelvis wo con [id number] 05/14/2022 12:11 PM RADIATION DOSE METRICS: Total DLP (mGy-cm): 1242.1 FINDINGS: Lungs: Left lower lobe calcified pulmonary parenchymal granuloma. Right lower lobe calcified pulmonary parenchymal granuloma. Heart: Atherosclerotic calcifications are present involving the LAD coronary artery. Diaphragm: A moderate hiatal hernia is present above the level of the diaphragm. Liver: Normal. No mass. Gallbladder and bile ducts: The gallbladder is surgically absent, with metallic clips in the gallbladder fossa. No extrahepatic biliary ductal dilatation or calculus. Pancreas: Moderate pancreatic atrophy. Spleen: Normal. No splenomegaly. Adrenal glands: Normal. No mass. Kidneys and ureters: Normal. No hydronephrosis. Stomach and bowel: There is increased stool noted in the abdominal colon, moderate in the ascending colon, mild in the transverse and descending colon. No evidence of mechanical bowel obstruction. Appendix: The vermiform appendix is normal. Intraperitoneal space: Pelvic floor relaxation with small peritoneocele (series 4, image 218). Vasculature: Mild aortic atherosclerotic calcification without aneurysm. Calcified phleboliths are present in the lower pelvis bilaterally. Lymph nodes: No enlarged lymph nodes. Urinary bladder: The urinary bladder is decompressed and difficult to assess. Reproductive: Unremarkable as visualized. Bones/joints: L5-S1 spondylosis with left neural foraminal stenosis. Right lower lumbar facet primary osteoarthritis. Lumbar spine vertebral body marginal osteophytes are noted at multiple levels. Soft tissues: A small left inguinal hernia is present containing only intra-abdominal fat. CT/CT kidney stone [id number] IMPRESSION: 1. Prior cholecystectomy. 2. Abdominal colonic constipation. 3. Hiatal hernia. 4. Pelvic floor relaxation with small peritoneocele. 5. Coronary atherosclerosis.
[2022-06-06 09:14] LABS: Add Urine Culture? No
[2022-06-06] MEDS: ondansetron 2 mg/ML SDV 2 mL 4 MG IVP (09:56)
[2022-06-06] MEDS: sodium chloride 0.9% 1,000 ML 999 ML IV (10:59)
[2022-06-06] MEDS: dicyclomine 10 mg Capsule PO (11:46)
== END 2022-06-06 12:31 | disposition home or self-care (01) ==
PROVIDERS: Emergency Provider Emergency Medicine; PCP Nurse Practitioner
DX: R10.9 Unspecified abdominal pain (principal); K59.00 Constipation, unspecified; R74.01 Elevation of levels of liver transaminase levels; E86.0 Dehydration; Z79.4 Long term (current) use of insulin; E11.9 Type 2 diabetes mellitus without complications; E78.5 Hyperlipidemia, unspecified; I10 Essential (primary) hypertension
CPT/HCPCS: 36416; 71045; 74176; 80053; 81001; 82962; 83690; 85025; 96361; 96374; 96375; 99285; J2270; J2405; J7030

== ENCOUNTER 2022-11-15 09:36 | Outpatient (CLI) | payer MEDICARE, MEDICAID, SELFPAY ==
--- NOTE | 2022-11-15 09:45 | MR_ITS ---
WS: [id number] MRI LUMBAR SPINE NONCONTRAST TECHNIQUE: Sagittal T1, T2 and STIR imaging. Axial T1 and T2 imaging. CLINICAL INFORMATION: RADICULOPATHY, LUMBAR REGION COMPARISON: None. FINDINGS: Mild lumbar curve. No acute compression. Disc bulging worse L5-S1 with endplate degenerative changes. Mild annular bulging L1-L2: . Slight narrowing of the LEFT subarticular recess. Spinal canal and foramen are patent L2-L3: Mild annular bulging. Mild facet arthropathy. Spinal canal and foramen are patent. L3-L4: Mild annular bulging. Mild central canal stenosis. Mild facet arthropathy. Spinal canal and fo ramen are patent. Moderate facet arthropathy ligamentum flavum hypertrophy. L4-L5: Mild annular bulging with narrowing of the subarticular recess bilaterally. Encroachment trave rsing L5 nerve roots. Moderate facet arthropathy. Small LEFT foraminal protrusion with mild LEFT fora atif narrowing. L5-S1: Disc osteophyte protrusion with impingement on the ventral thecal sac. Impingement traversing LEFT greater than RIGHT S1 nerve roots with mild central canal stenosis. Mild facet arthropathy. LEFT foraminal protrusion impinges the exiting LEFT L5 nerve root with moderate LEFT foraminal narrowing. Mild RIGHT foraminal narrowing. Mild central canal stenosis cervical spine movie critic imaging at C3-C4 and C4-C5. Visualized pelvic bony structures: Normal. Paravertebral soft tissues: Normal. MR/MR lumbar spine wo con* [id number] IMPRESSION: 1. Mild lumbar curve. No acute compression. 2. Disc osteophyte complex L5-S1 impinges the traversing LEFT greater than RIG HT S1 nerve roots. Moderate LEFT L5-S1 foraminal narrowing. Mild central canal stenosis. 3. Mild central canal stenosis L3-L4 with mild annular bulging and moderate fa cet arthropathy with ligamentum flavum hypertrophy. 4. Mild annular bulging L4-L5 with slight effacement of ventral thecal sac. Sm all LEFT foraminal protrusion at this level contacts the exiting LEFT L4 nerve root with mild LEFT foraminal narrowing.
== END 2022-11-15 09:37 | disposition home or self-care (01) ==
LOC: RAD 09:36
PROVIDERS: PCP Nurse Practitioner Family; Visit Provider Nurse Practitioner
DX: M54.16 Radiculopathy, lumbar region (principal); M25.78 Osteophyte, vertebrae; M48.061 Spinal stenosis, lumbar region without neurogenic claudication; M47.816 Spondylosis without myelopathy or radiculopathy, lumbar region; M51.26 Other intervertebral disc displacement, lumbar region
CPT/HCPCS: 72148

== ENCOUNTER 2023-02-23 02:24 | Emergency (ER) | payer MEDICARE, MEDICAID, SELFPAY ==
--- NOTE | 2023-02-23 02:27 | XRR_ITS ---
PROCEDURE INFORMATION: Exam: XR Chest Exam date and time: 02/23/2023 2:49 AM Age: 52 years old Clinical indication: Other: Possible foreign body/vomiting; Patient HX: Patient thinks she has a food bolus stuck after episode of emesis this a. M. TECHNIQUE: Imaging protocol: Radiologic exam of the chest. Views: 1 view. COMPARISON: CR XR chest 1V portable [id number] 06/06/2022 8:08 AM FINDINGS: Lungs: There are low lung volumes. Otherwise, the lungs are clear. Pleural spaces: Unremarkable. No pleural effusion. No pneumothorax. Heart/Mediastinum: There is mild cardiomegaly. Bones/joints: Unremarkable. Soft tissues: No radiopaque or radiolucent foreign body. XR/XR chest 1V portable [id number] IMPRESSION: 1. There are low lung volumes. Otherwise, the lungs are clear. 2. No radiopaque or radiolucent foreign body. 3. Mild cardiomegaly.
--- NOTE | 2023-02-23 02:28 | ED_ITS ---
HPI - Nausea/Vomiting/Diarrhea General: Chief complaint: Airway/Esophagus Foreign Body Stated complaint: possible fb in throat Time Seen by Provider: 02/23/23 02:24 Source: patient and EMS Mode of arrival: EMS Limitations: no limitations History of Present Illness: 52-year-old female states that she is had multiple episodes of nausea and vomiting since 11 last night states that now she feels like there is something stuck in her throat having some abdominal cramping. States she been able to drink fluids and tolerate fluids but states she feels like her something in her throat. She denies any diarrhea she denies any fever she denies any worsening improving factors. Associated nausea: Yes Associated symtoms: Reports nausea; Denies chest pain, dysuria or headache(s) Review of Systems Const: Denies: fever(s), chills, body aches or change in appetite Eyes: Denies: blurry vision or eye discomfort ENMT: Denies: throat pain or dental pain Card: Denies: chest pain Resp: Denies: dyspnea GI: Reports: abdominal pain, nausea and vomiting : Denies: dysuria Musc: Denies: neck pain or back pain Skin/Breast: Denies: rash Neuro: Denies: headache(s) Psych: Denies: depression Wiliam/Lymph: Denies: easy bruising All/Imm: Denies: urticaria PFSH ED PFSH: Medical History Abdominal pain Chronic kidney disease Diabetes type 2, controlled Hyperlipidemia Hypertension Hypothyroidism Nausea & vomiting Surgical History History of colonoscopy 10+yrs History of laparoscopic cholecystectomy 1997 Family History Other Cancer Chronic kidney disease (CKD) Dementia Diabetes Stroke Denies family history of CAD (coronary artery disease) Anesthesia complication Social History Smoking and tobacco status: never smoked Alcohol intake: never Lives independently: Yes Household members: none Physical Exam Const: COMMON NORMALS: no acute distress, patient oriented x3 and healthy appearing HENMT: COMMON NORMALS: normocephalic and atraumatic HEAD & SCALP: normocephalic and atraumatic Eye: COMMON NORMALS: Equal, round and reactive pupils present and EOMs intact bilaterally PUPIL: Yes Equal, round and reactive pupils present Neck/C-Spine: COMMON NORMALS: full ROM and supple Chest: COMMONS NORMALS: normal inspection of the chest and normal palpation of entire chest wall Resp: COMMON NORMALS: normal respiratory effort, No retractions, No use of accessory muscles and clear to auscultation bilaterally AUSCULTATION: clear to auscultation bilaterally Cardio: COMMON NORMALS: regular rate, regular rhythm and No murmurs present (Cardio) RATE: regular rate RHYTHM: regular rhythm GI: COMMON NORMALS: Normal to inspection, nondistended, normoactive bowel sounds present, Soft to palpation, non-tender and no masses PALPATION: Yes Soft to palpation Extremity: COMMON NORMALS: normal to inspection and full ROM Neuro: COMMON NORMALS: patient oriented x3, moves all extremities and no focal motor deficits Psych: COMMON NORMALS: mental status grossly normal, Normal thought process present and cooperative THOUGHT PROCESS: Normal thought process present Skin: COMMON NORMALS: no rashes or lesions noted and no wounds GENERAL SKIN EXAM: no rashes or lesions noted Course Vital Signs: Vital signs: Vital Signs Temperature 98.8 F 02/23/23 02:30 Pulse Rate 105 H 02/23/23 02:30 Respiratory Rate 16 02/23/23 02:30 Blood Pressure 159/72 02/23/23 02:30 Pulse Oximetry 95 02/23/23 02:30 Oxygen Delivery Me thod 02/23/23 02:30 MDM - Nausea/Vomiting/Diarrhea Medical Decision Making Patient presents here with vomiting blood work here is normal she feels much improved after Zofran she felt like there is something stuck in her throat that improved as well she has been able to tolerate liquids and solids here and able to swallow without any problems she is stable for discharge she is to follow-up with her PCP and return if worsening. Lab Data 02/23/23 02:34 02/23/23 02:34 Laboratory Results WBC 11.3 10^3/uL (4.0-10.0) H 02/23/23 02:34 RBC 4.98 10^6/uL (4.1-5.3) 02/23/23 02:34 Hgb 13.4 g/dL (11.5-15.3) 02/23/23 02:34 Hct 41.9 % (37.0-47.0) 02/23/23 02:34 MCV 84.1 fl (81-99) 02/23/23 02:34 MCH 26.9 pg (28.0-34.0) L 02/23/23 02:34 MCHC 32.0 g/dL (30.0-36.0) 02/23/23 02:34 RDW 13.0 % (12.1-15.1) 02/23/23 02:34 Plt Count 259 10^3/cmm (130-400) 02/23/23 02:34 MPV 11.0 fL (7.4-10.4) H 02/23/23 02:34 Neut % (Auto) 73.0 % 02/23/23 02:34 Lymph % (Auto) 17.4 % 02/23/23 02:34 [place] % (Auto) 7.3 % 02/23/23 02:34 Eos % (Auto) 1.4 % 02/23/23 02:34 Baso % (Auto) 0.4 % 02/23/23 02:34 Neut # (Auto) 8.25 10^3/uL (1.8-7.7) H 02/23/23 02:34 Lymph # (Auto) 2.0 10^3/uL (0.8-4.8) 02/23/23 02:34 [place] # (Auto) 0.8 10^3/uL (0.2-0.9) 02/23/23 02:34 Eos # (Auto) 0.2 10^3/uL (0.0-0.8) 02/23/23 02:34 Baso # (Auto) 0.0 10^3/uL (0.0-0.1) 02/23/23 02:34 Nucleated RBC % (auto) 0 % 02/23/23 02:34 Nucleated RBCs # 0.0 /100WBC 02/23/23 02:34 Sodium 133 mmol/L (136-145) L 02/23/23 02:34 Potassium 4.6 mmol/L (3.5-5.1) 02/23/23 02:34 Chloride 97 mmol/L (98-107) L 02/23/23 02:34 Carbon Dioxide 25 mmol/L (22-29) 02/23/23 02:34 Anion Gap 15.6 (5-19) 02/23/23 02:34 BUN 16 mg/dL (6-20) 02/23/23 02:34 Creatinine 1.2 mg/dL (0.5-0.9) H 02/23/23 02:34 GFR Calculation 46.8 mL/min (90-130) L 02/23/23 02:34 Glucose 263 mg/dL (65-115) H 02/23/23 02:34 Calculated Osmolality 286 mOsm/kg (285-295) 02/23/23 02:34 Calcium 9.2 mg/dL (8.5-10.5) 02/23/23 02:34 Total Bilirubin 0.2 mg/dL (0.15-1.2) 02/23/23 02:34 AST 19 U/L (0-32) 02/23/23 02:34 ALT 17 U/L (0-33) 02/23/23 02:34 Alkaline Phosphatase 95 U/L (35-105) 02/23/23 02:34 Total Protein 7.0 g/dL (6.6-8.7) 02/23/23 02:34 Albumin 3.9 g/dL (3.5-5.2) 02/23/23 02:34 Globulin 3.1 g/dL (1.3-4.6) 02/23/23 02:34 Lipase 22 U/L (13-60) 02/23/23 02:34 Discharge Plan Discharge Patient Disposition: Home Clinical Impression: Vomiting Condition: Stable Prescriptions: New ondansetron 4 mg tablet,disintegrating 4 mg PO Q6H PRN (Reason: nausea and vomiting) Qty: 14 0RF No Action pantoprazole 40 mg Tablet,Delayed Release (Dr/Ec) 40 mg PO DAILY gabapentin 300 mg capsule 300 mg PO BID sertraline 50 mg tablet 50 mg PO DAILY rosuvastatin 20 mg tablet 40 mg PO DAILY duloxetine 60 mg capsule,delayed release(DR/EC) 60 mg PO DAILY Humalog KwikPen Insulin 200 unit/mL (3 mL) insulin pen See Rx Instructions .ROUTE .COMPLEX Rx Instructions: sliding scale Ozempic 1 mg/dose (4 mg/3 mL) pen injector 0.25 mg SUBCUT Q7D albuterol sulfate 90 mcg/actuation HFA aerosol inhaler 2 puff INHALATION Q4H PRN (Reason: Shortness Of Breath) losartan 50 mg Tablet 50 mg PO DAILY Qty: 60 2RF amlodipine 10 mg Tablet 10 mg PO DAILY Qty: 60 2RF Tradjenta 5 mg tablet 5 mg PO DAILY Qty: 60 0RF Tresiba FlexTouch U-200 200 unit/mL (3 mL) Insulin Pen 83 unit SUBCUT BEDTIME Qty: 5 2RF ondansetron 4 mg Tablet,Disintegrating 4 mg PO Q6H PRN (Reason: Nausea) metoclopramide HCl 10 mg tablet 10 mg PO Q4H magnesium oxide 400 mg magnesium Capsule 400 mg PO BID levothyroxine 125 mcg capsule 125 mcg PO DAILY polyethylene glycol 3350 [Miralax] 17 gram powder in packet 17 g PO BID Qty: 30 0RF Discharge Orders: Discharge ED (Routine); Ordered 02/23/23 Ordered By: Cara Ledesma Referrals: Marlene Santamaria, [employer] OPERATOR [Nurse Practitioner] - 1-3 days Discharge Diet: Advance as tolerated Discharge Activity: Resume usual activity Patient Instructions: Acute Nausea and Vomiting (ED) Coding Level of Care Code ED Home Visit Field Care Manager for Felipe Lambert
[2023-02-23 02:30] VITALS: BP 159/72; PULSE 105; RESP 16; TEMP 37.1; O2SAT 95; BMI 44.4
[2023-02-23] MEDS: lidocaine 2% viscous 15 ML, aluminum-mag hydrox-simethicon 30 ML, sucralfate oral liq 1 GM PO (02:40)
[2023-02-23 02:42] LABS: Basophils % 0.4 %; Eosinophils # 0.2 10^3/uL (0.0-0.8); Eosinophils % 1.4 %; Hematocrit 41.9 % (37.0-47.0); Hemoglobin 13.4 g/dL (11.5-15.3); Lymphocytes % 17.4 %; Mean Corpuscular Hemoglobin 26.9 pg (28.0-34.0); Mean Corpuscular Volume 84.1 fl (81-99); Monocytes # 0.8 10^3/uL (0.2-0.9); Monocytes % 7.3 %; Neutrophils # 8.25 10^3/uL (1.8-7.7); Nucleated Red Blood Cells % 0 %; Platelet Count 259 10^3/cmm (130-400); Red Blood Count 4.98 10^6/uL (4.1-5.3); White Blood Count 11.3 10^3/uL (4.0-10.0)
[2023-02-23] MEDS: ondansetron 2 mg/ML SDV 2 mL 4 MG IVP (02:42)
[2023-02-23 02:58] LABS: Alanine Aminotransferase 17 U/L (0-33); Albumin Level 3.9 g/dL (3.5-5.2); Alkaline Phosphatase 95 U/L (35-105); Blood Urea Nitrogen 16 mg/dL (6-20); Calcium 9.2 mg/dL (8.5-10.5); Carbon Dioxide 25 mmol/L (22-29); Chloride 97 mmol/L (98-107); Globulin 3.1 g/dL (1.3-4.6); Glomerular Filtration Rate 46.8 mL/min (90-130); Glucose 263 mg/dL (65-115); Lipase 22 U/L (13-60); Osmolality Calculated 286 mOsm/kg (285-295); Sodium 133 mmol/L (136-145); Total Bilirubin 0.2 mg/dL (0.15-1.2)
[2023-02-23 03:31] LABS: Anion Gap 15.6 (5-19); Aspartate Amino Transferase 19 U/L (0-32); Potassium 4.6 mmol/L (3.5-5.1)
== END 2023-02-23 03:57 | disposition home or self-care (01) ==
PROVIDERS: Emergency Provider Emergency Medicine; PCP Nurse Practitioner
DX: R11.11 Vomiting without nausea (principal); Z79.4 Long term (current) use of insulin; E11.22 Type 2 diabetes mellitus with diabetic chronic kidney disease; I12.9 Hypertensive chronic kidney disease with stage 1 through stage 4 chronic kidney disease, or unspecified chronic kidney disease; N18.9 Chronic kidney disease, unspecified; E78.5 Hyperlipidemia, unspecified
CPT/HCPCS: 71045; 80053; 83690; 85025; 96374; 99284; J2405

== ENCOUNTER 2023-02-23 17:22 | Emergency (ER) | payer MEDICARE, MEDICAID, SELFPAY ==
[2023-02-23 17:28] VITALS: BP 128/88; PULSE 70; RESP 14; TEMP 36.7; O2SAT 96
--- NOTE | 2023-02-23 17:35 | XRR_ITS ---
PROCEDURE INFORMATION: Exam: XR Chest Exam date and time: 02/23/2023 5:40 PM Age: 52 years old Clinical indication: Pain; Chest pressure; Additional info: Chest pain TECHNIQUE: Imaging protocol: Radiologic exam of the chest. Views: 1 view. COMPARISON: CR (CHEST, ) 02/23/2023 2:49 AM FINDINGS: Lungs: Lungs are clear bilaterally. Pleural spaces: No pleural effusion. No pneumothorax. Heart/Mediastinum: Stable moderate enlargement of the cardiac silhouette. Stable small hiatal hernia. Mediastinal contours are unremarkable. Bones/joints: Unremarkable for age. XR/XR chest 1V portable [id number] IMPRESSION: 1. No acute cardiopulmonary process. 2. Incidental/nonacute findings are listed in the report.
--- NOTE | 2023-02-23 17:35 | ECG_ITS ---
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 Measurements Intervals [place] Rate: 78 P: 84 CT: 162 QRS: 76 QRSD: 76 T: 76 QT: 366 QTc: 417 Interpretive Statements SINUS RHYTHM Compared to ECG 05/14/2022 13:48:37 Sinus tachycardia no longer present Electronically Signed On 02-23-2023 23:55:28 CDT by Allie Morales M.D. [id number]
--- NOTE | 2023-02-23 17:36 | XRR_ITS ---
PROCEDURE INFORMATION: Exam: XR Left Hand Exam date and time: 02/23/2023 5:44 PM Age: 52 years old Clinical indication: Pain; Hand; Left; Additional info: Injury TECHNIQUE: Imaging protocol: Radiologic exam of the left hand. Views: 3 or more views. COMPARISON: No relevant prior studies available. FINDINGS: Bones/joints: Moderate degenerative change at the 1st CMC joint. No acute fracture. No dislocation. Normal bone mineralization. Soft tissues: No soft tissue swelling. No radiopaque foreign body. XR/XR hand LT min 3V* [id number] IMPRESSION: 1. No acute fracture of left hand. Followup imaging recommended in 7-14 days if clinical concern for fracture persists. 2. Incidental/nonacute findings are listed in the report.
--- NOTE | 2023-02-23 17:52 | W.ED.CHESTPA ---
HPI - Chest Pain General: Chief Complaint: Chest Pain Stated Complaint: N/V/ ABDOMINAL PAIN/ CHEST PAIN Time Seen by Provider: 02/23/23 17:35 History of Present Illness: Patient was seen at the primary care clinic today and was referred to the ER due to abdominal and chest pain. Last night patient was ill with many episodes of vomiting and and was treated in the ER and discharged home. After sleeping at home patient still felt discomfort and foggy and sought treatment at her primary care. Primary care evaluated her and referred her to the ER for further evaluation and treatment. Patient appears nontoxic. Patient does appear somnolent. Patient responds to all questions but is slow to respond. Patient does have a history of diabetes mellitus, obesity, constipation, GERD, and neuropathy. Patient had her gallbladder removed but no other abdominal surgeries. Associated symptoms: Reports abdominal pain, nausea and vomiting; Deny dyspnea or fever(s) Review of Systems General: Reports: 10 or more systems reviewed and unremarkable except in HPI and below Const: Denies: fever(s) ENMT: Denies: throat pain Card: Reports: chest pain Resp: Denies: dyspnea GI: Reports: abdominal pain, nausea and vomiting; Denies: diarrhea or constipation : Denies: difficulty voiding Musc: Reports: other (Chest wall tenderness) PFS ED PFSH: Medical History Abdominal pain Chronic kidney disease Diabetes type 2, controlled Hyperlipidemia Hypertension Hypothyroidism Nausea & vomiting Surgical History History of colonoscopy 10+yrs History of laparoscopic cholecystectomy 1997 Family History Other Cancer Chronic kidney disease (CKD) Dementia Diabetes Stroke Denies family history of CAD (coronary artery disease) Anesthesia complication Social History Smoking and tobacco status: never smoked Alcohol intake: never Lives independently: Yes Household members: none Physical Exam Const: COMMON NORMALS: alert HENMT: COMMON NORMALS: normocephalic HEAD & SCALP: normocephalic MOUTH: Normal oral and palatal mucosa present Neck/C-Spine: COMMON NORMALS: full ROM Chest: CHEST: Yes tenderness (Bilateral anterior chest wall tenderness) Resp: COMMON NORMALS: normal respiratory effort and clear to auscultation bilaterally AUSCULTATION: clear to auscultation bilaterally Cardio: COMMON NORMALS: regular rate and regular rhythm RATE: regular rate RHYTHM: regular rhythm GI: COMMON NORMALS: Soft to palpation AUSCULTATION: Yes normoactive bowel sounds PALPATION: Yes Soft to palpation and Yes Tenderness to palpation present (GI) (Generalized) : COMMON NORMALS: Yes no CVA tenderness BLADDER/KIDNEY EXAM: Yes no CVA tenderness Back/Pelvis: COMMON NORMALS: no CVA tenderness Extremity: COMMON NORMALS: normal to inspection and no pedal edema Neuro: SENSORIUM/ORIENTATION: Yes alert Skin: COMMON NORMALS: turgor normal GENERAL SKIN EXAM: turgor normal Course Vital Signs: Vital signs: Vital Signs Temperature 98.0 F 02/23/23 17:28 Pulse Rate 78 02/23/23 18:02 Respiratory Rate 16 02/23/23 18:02 Blood Pressure 145/98 02/23/23 18:02 Pulse Oximetry 95 02/23/23 18:02 Oxygen Delivery Me thod 02/23/23 18:02 MDM - Chest Pain Medical Decision Making 52-year-old female comes in today with complaints of nausea and vomiting last night, followed by chest pain and abdominal pain today. Patient was seen at primary care office and referred back to the ER for further evaluation of chest and abdominal pain. Patient reports no episodes of emesis since discharge from the emergency room this morning. Patient reports not feeling her normal self and has consistent pain to the chest and abdomen. On exam patient has some chest wall tenderness on palpation and abdominal tenderness. Bowel sounds are present. Vital signs are normal. Differential diagnosis includes but not limited to ACS, gastroenteritis, appendicitis, esophageal rupture. Laboratory values noted a white count of 11,000, CMP showed a sodium of 130 and a creatinine 1.1. CT of the chest abdomen pelvis was unremarkable. X-ray of the hand and chest were unremarkable. Believe the patient probably has some gastritis versus gastroenteritis with dehydration. Patient was infused with 2 L of IV fluid, given medication for her pain and discomfort. Recommend follow-up with primary care in 2 to 3 days for recheck, return to the ER for worsening symptoms such as blood in vomit or stool or high fever. Patient reported understanding. Lab Data 02/23/23 17:52 02/23/23 17:52 Radiology Impressions Chest X-Ray 02/23/23 17:35 IMPRESSION: 1. No acute cardiopulmonary process. 2. Incidental/nonacute findings are listed in the report. Hand X-Ray 02/23/23 17:36 IMPRESSION: 1. No acute fracture of left hand. Followup imaging recommended in 7-14 days if clinical concern for fracture persists. 2. Incidental/nonacute findings are listed in the report. Chest/Abdomen/Pelvis CT 02/23/23 18:00 IMPRESSION: 1. No acute cardiopulmonary process. 2. Stable moderate hiatal hernia. 3. The esophagus is collapsed but otherwise unremarkable. 4. Noncalcified nodule in the right middle lobe with an average measurement of 4 mm. For patients at low risk (minimal or absent history of smoking and of other known risk factors), no routine follow-up is indicated. For patients at high risk (history of smoking or of other known risk IMPRESSION: 1. No acute abnormality in the abdomen or pelvis. 2. Stable moderate hiatal hernia. 3. Incidental/nonacute findings are listed in the report. Laboratory Results WBC 11.1 10^3/uL (4.0-10.0) H 02/23/23 17:52 RBC 4.82 10^6/uL (4.1-5.3) 02/23/23 17:52 Hgb 12.9 g/dL (11.5-15.3) 02/23/23 17:52 Hct 40.2 % (37.0-47.0) 02/23/23 17:52 MCV 83.4 fl (81-99) 02/23/23 17:52 MCH 26.8 pg (28.0-34.0) L 02/23/23 17:52 MCHC 32.1 g/dL (30.0-36.0) 02/23/23 17:52 RDW 13.0 % (12.1-15.1) 02/23/23 17:52 Plt Count 253 10^3/cmm (130-400) 02/23/23 17:52 MPV 11.0 fL (7.4-10.4) H 02/23/23 17:52 Neut % (Auto) 60.5 % 02/23/23 17:52 Lymph % (Auto) 28.4 % 02/23/23 17:52 [place] % (Auto) 8.5 % 02/23/23 17:52 Eos % (Auto) 2.0 % 02/23/23 17:52 Baso % (Auto) 0.3 % 02/23/23 17:52 Neut # (Auto) 6.73 10^3/uL (1.8-7.7) 02/23/23 17:52 Lymph # (Auto) 3.2 10^3/uL (0.8-4.8) 02/23/23 17:52 [place] # (Auto) 0.9 10^3/uL (0.2-0.9) 02/23/23 17:52 Eos # (Auto) 0.2 10^3/uL (0.0-0.8) 02/23/23 17:52 Baso # (Auto) 0.0 10^3/uL (0.0-0.1) 02/23/23 17:52 Nucleated RBC % (auto) 0 % 02/23/23 17:52 Nucleated RBCs # 0.0 /100WBC 02/23/23 17:52 Sodium 130 mmol/L (136-145) L 02/23/23 17:52 Potassium 3.9 mmol/L (3.5-5.1) 02/23/23 17:52 Chloride 91 mmol/L (98-107) L 02/23/23 17:52 Carbon Dioxide 25 mmol/L (22-29) 02/23/23 17:52 Anion Gap 17.9 (5-19) 02/23/23 17:52 BUN 15 mg/dL (6-20) 02/23/23 17:52 Creatinine 1.1 mg/dL (0.5-0.9) H 02/23/23 17:52 GFR Calculation 51.8 mL/min (90-130) L 02/23/23 17:52 Glucose 95 mg/dL (65-115) 02/23/23 17:52 Calculated Osmolality 271 mOsm/kg (285-295) L 02/23/23 17:52 Lactic Acid 0.8 mmol/L (0.5-2.2) 02/23/23 18:24 Calcium 9.1 mg/dL (8.5-10.5) 02/23/23 17:52 Total Bilirubin 0.4 mg/dL (0.15-1.2) 02/23/23 17:52 AST 17 U/L (0-32) 02/23/23 17:52 ALT 15 U/L (0-33) 02/23/23 17:52 Alkaline Phosphatase 92 U/L (35-105) 02/23/23 17:52 Troponin T Baseline 13 ng/L (0-10) H 02/23/23 17:52 NT-Pro-B Natriuret Pep 36 pg/mL (0-125) 02/23/23 17:52 Total Protein 6.3 g/dL (6.6-8.7) L 02/23/23 17:52 Albumin 4.2 g/dL (3.5-5.2) 02/23/23 17:52 Globulin 2.1 g/dL (1.3-4.6) 02/23/23 17:52 Lipase 19 U/L (13-60) 02/23/23 17:52 EKG Data EKG 1: EKG interpretation date: 02/23/23 EKG interpretation time: 17:52 Prior EKG tracings: not available for review Interpretation: EKG shows a normal sinus rhythm with a regular rate at [address] elevation or ectopy is noted. No prior exam was available for review. Discharge Plan Discharge Patient Disposition: Home Clinical Impression: Acute dehydration Vomiting Qualifiers: Vomiting type: unspecified Nausea presence: with nausea Qualified Code(s): R11.2 - Nausea with vomiting, unspecified Gastritis Qualifiers: Gastritis type: unspecified gastritis Chronicity: acute Gastritis bleeding: without bleeding Qualified Code(s): K29.00 - Acute gastritis without bleeding Condition: Stable Prescriptions: New ondansetron 4 mg tablet,disintegrating 4 mg PO Q8H PRN (Reason: nausea and vomiting) Qty: 10 0RF No Action ondansetron 4 mg tablet,disintegrating 4 mg PO Q6H PRN (Reason: nausea and vomiting) Qty: 14 0RF pantoprazole 40 mg Tablet,Delayed Release (Dr/Ec) 40 mg PO DAILY gabapentin 300 mg capsule 300 mg PO BID sertraline 50 mg tablet 50 mg PO DAILY rosuvastatin 20 mg tablet 40 mg PO DAILY duloxetine 60 mg capsule,delayed release(DR/EC) 60 mg PO DAILY Humalog KwikPen Insulin 200 unit/mL (3 mL) insulin pen See Rx Instructions .ROUTE .COMPLEX Rx Instructions: sliding scale Ozempic 1 mg/dose (4 mg/3 mL) pen injector 0.25 mg SUBCUT Q7D albuterol sulfate 90 mcg/actuation HFA aerosol inhaler 2 puff INHALATION Q4H PRN (Reason: Shortness Of Breath) losartan 50 mg Tablet 50 mg PO DAILY Qty: 60 2RF amlodipine 10 mg Tablet 10 mg PO DAILY Qty: 60 2RF Tradjenta 5 mg tablet 5 mg PO DAILY Qty: 60 0RF Tresiba FlexTouch U-200 200 unit/mL (3 mL) Insulin Pen 83 unit SUBCUT BEDTIME Qty: 5 2RF ondansetron 4 mg Tablet,Disintegrating 4 mg PO Q6H PRN (Reason: Nausea) metoclopramide HCl 10 mg tablet 10 mg PO Q4H magnesium oxide 400 mg magnesium Capsule 400 mg PO BID levothyroxine 125 mcg capsule 125 mcg PO DAILY polyethylene glycol 3350 [Miralax] 17 gram powder in packet 17 g PO BID Qty: 30 0RF Discharge Orders: Discharge ED (Routine); Ordered 02/23/23 Ordered By: Melvin Gutiérrez Referrals: Paulo Meyers FNP [Primary Care Provider] - Discharge Diet: Usual diet Discharge Activity: Increase activity as tolerated Patient Instructions: Abdominal Pain (ED) Activity Restrictions/Additional Instructions: Make sure to drink plenty of water and fluids. Start with a clear liquid diet and increase to a bland diet with such foods as boiled chicken and rice. Follow-up with primary care in 2 to 3 days for recheck. Return to ED for new concerns such as fever greater than 100.4, blood in vomit or stool, or new concerns. Coding Level of Care Code ED Divemaster for Felipe Lambert
--- NOTE | 2023-02-23 17:56 | PC.NURSE ---
pt on bedside property assessment monitor
--- NOTE | 2023-02-23 18:00 | CTR_ITS ---
PROCEDURE INFORMATION: Exam: CT Chest With Contrast; Diagnostic Exam date and time: 02/23/2023 6:33 PM Age: 52 years old Clinical indication: Abdominal pain; Acute; Chest pressure; Prior surgery; Surgery date: 6+ months; Surgery type: Gb; Additional info: Chest and abd pain, recent retching episodes, R/O esophageal rupture, abd abscess or infection TECHNIQUE: Imaging protocol: Diagnostic computed tomography of the chest with contrast. Sagittal and coronal reformatted images were created and reviewed. Radiation optimization: All CT scans at this facility use at least one of these dose optimization techniques: automated exposure control; mA and/or kV adjustment per patient size (includes targeted exams where dose is matched to clinical indication); or iterative reconstruction. Contrast material: OMNI 350; Contrast volume: 100 ml; Contrast route: INTRAVENOUS (IV); REPORTING DATA: Count of CT and Cardiac NM exams in prior 12 months: This patient has received 2 known CTs and 0 known cardiac nuclear medicine studies in the 12 months prior to the current study. COMPARISON: CR (CHEST, ) 02/23/2023 5:40 PM RADIATION DOSE METRICS: Total DLP (mGy-cm): 1475.75 FINDINGS: Trachea: Tracheobronchial structures are patent. Lungs: Lungs are clear bilaterally. Noncalcified nodule in the right middle lobe with an average measurement of 4 mm (series 5, image 32). Calcified granuloma in the right lower lobe. Pleural spaces: No pneumothorax. No pleural effusion. Heart: Moderate enlargement of the heart. Coronary arteries: Mild atherosclerotic calcification in the coronary arteries. Esophagus: The esophagus is collapsed but otherwise unremarkable. Mediastinal space: No mediastinal hematoma. No pneumomediastinum. Lymph nodes: No lymphadenopathy. Vasculature: No evidence for aortic aneurysm or aortic dissection. Pulmonary arteries are unremarkable. Pulmonary veins are unremarkable. Diaphragm: Stable moderate hiatal hernia. Bones/joints: Multilevel degenerative changes of varying severity in the visualized spine. Degenerative changes at both shoulders, moderate on the right and mild on the left. Soft tissues: No acute abnormality in the extrathoracic soft tissues. factors), consider optional CT Chest at 12 months. (Reference: Abiola) 5. Incidental/nonacute findings are listed in the report. REFERENCES: Abiola Hope, et al. Guidelines for Management of Incidental Pulmonary Nodules Detected on CT Images: From the Fleischner Society 2017. Radiology. 2017;284(1):228-243. PROCEDURE INFORMATION: Exam: CT Abdomen And Pelvis With Contrast Exam date and time: 02/23/2023 6:33 PM Age: 52 years old Clinical indication: Abdominal pain; Acute; Chest pressure; Prior surgery; Surgery date: 6+ months; Surgery type: Gb; Additional info: Chest and abd pain, recent retching episodes, R/O esophageal rupture, abd abscess or infection TECHNIQUE: Imaging protocol: Computed tomography of the abdomen and pelvis with contrast. Sagittal and coronal reformatted images were created and reviewed. Radiation optimization: All CT scans at this facility use at least one of these dose optimization techniques: automated exposure control; mA and/or kV adjustment per patient size (includes targeted exams where dose is matched to clinical indication); or iterative reconstruction. Contrast material: OMNI 350; Contrast volume: 100 ml; Contrast route: INTRAVENOUS (IV); REPORTING DATA: Count of CT and Cardiac NM exams in prior 12 months: This patient has received 2 known CTs and 0 known cardiac nuclear medicine studies in the 12 months prior to the current study. COMPARISON: CT kidney stone [id number] 06/06/2022 10:06 AM RADIATION DOSE METRICS: Total DLP (mGy-cm): 1475.75 FINDINGS: Liver: The liver is unremarkable. Gallbladder and bile ducts: Stable findings consistent with a previous cholecystectomy. No biliary ductal dilatation. Pancreas: The pancreas is unremarkable. No pancreatic ductal dilatation. Spleen: The spleen is unremarkable. Adrenal glands: The right and left adrenal glands are unremarkable. Kidneys and ureters: The right and left kidneys are unremarkable. The right and left ureters are unremarkable. Stomach and bowel: Stable moderate hiatal hernia. No acute abnormality in the small bowel. No acute abnormality in the colon. Appendix: The appendix is visualized and is unremarkable. No findings to suggest acute appendicitis. Intraperitoneal space: No free intraperitoneal air. No ascites. No loculated fluid collections to suggest an abscess. Vasculature: Stable mild atherosclerotic calcifications in the visualized arteries. No evidence for aortic aneurysm or aortic dissection. Hepatic veins, portal veins, splenic vein, and SMV are patent. Lymph nodes: No lymphadenopathy. Urinary bladder: There is contrast layering in the bladder. No acute abnormality in the bladder. Reproductive: The uterus, right ovary, and left ovary are unremarkable. Bones/joints: Degenerative changes in the spine, sacroiliac joints, and hips. Soft tissues: No acute abnormality in the extra-abdominal soft tissues. CT/CT chest abdpel w/*[id number] IMPRESSION: 1. No acute cardiopulmonary process. 2. Stable moderate hiatal hernia. 3. The esophagus is collapsed but otherwise unremarkable. 4. Noncalcified nodule in the right middle lobe with an average measurement of 4 mm. For patients at low risk (minimal or absent history of smoking and of other known risk factors), no routine follow-up is indicated. For patients at high risk (history of smoking or of other known risk IMPRESSION: 1. No acute abnormality in the abdomen or pelvis. 2. Stable moderate hiatal hernia. 3. Incidental/nonacute findings are listed in the report.
[2023-02-23 18:02] VITALS: BP 145/98; PULSE 78; RESP 16; O2SAT 95
[2023-02-23] MEDS: sodium chloride 0.9% 1,000 ML 999 ML IV ×2 (18:07→18:57)
[2023-02-23 18:08] LABS: Basophils % 0.3 %; Eosinophils # 0.2 10^3/uL (0.0-0.8); Hematocrit 40.2 % (37.0-47.0); Hemoglobin 12.9 g/dL (11.5-15.3); Lymphocytes # 3.2 10^3/uL (0.8-4.8); Lymphocytes % 28.4 %; Mean Corpuscular HGB Conc 32.1 g/dL (30.0-36.0); Mean Corpuscular Hemoglobin 26.8 pg (28.0-34.0); Mean Corpuscular Volume 83.4 fl (81-99); Monocytes # 0.9 10^3/uL (0.2-0.9); Monocytes % 8.5 %; Neutrophils # 6.73 10^3/uL (1.8-7.7); Neutrophils % 60.5 %; Nucleated Red Blood Cells % 0 %; Platelet Count 253 10^3/cmm (130-400); Red Blood Count 4.82 10^6/uL (4.1-5.3); White Blood Count 11.1 10^3/uL (4.0-10.0)
[2023-02-23] MEDS: fentaNYL 50 mcg/mL INJ 2mL IVP (18:08)
[2023-02-23] MEDS: ondansetron 2 mg/ML SDV 2 mL 4 MG IVP (18:08)
[2023-02-23 18:32] LABS: Troponin(5th) Baseline 13 ng/L (0-10)
[2023-02-23 18:39] LABS: Alanine Aminotransferase 15 U/L (0-33); Albumin Level 4.2 g/dL (3.5-5.2); Alkaline Phosphatase 92 U/L (35-105); Anion Gap 17.9 (5-19); Aspartate Amino Transferase 17 U/L (0-32); Blood Urea Nitrogen 15 mg/dL (6-20); Calcium 9.1 mg/dL (8.5-10.5); Carbon Dioxide 25 mmol/L (22-29); Chloride 91 mmol/L (98-107); Globulin 2.1 g/dL (1.3-4.6); Glomerular Filtration Rate 51.8 mL/min (90-130); Glucose 95 mg/dL (65-115); Lipase 19 U/L (13-60); NT Pro B Type Natriuretic Pept 36 pg/mL (0-125); Osmolality Calculated 271 mOsm/kg (285-295); Potassium 3.9 mmol/L (3.5-5.1); Sodium 130 mmol/L (136-145); Total Bilirubin 0.4 mg/dL (0.15-1.2); Total Protein 6.3 g/dL (6.6-8.7)
[2023-02-23 18:52] LABS: Lactic Sepsis W/Reflex 0.8 mmol/L (0.5-2.2)
[2023-02-23] MEDS: iohexol 350 mg/mL 500 mL Btl (per mL) IV (18:58)
[2023-02-23 19:40] LABS: Urine Color Light yellow (Yellow)
[2023-02-23 19:41] LABS: Add Urine Microscopic? YES; Bacteria Urine TRACE /hpf; Bilirubin Urine Neg (Negative); Blood Urine Neg (Negative); Glucose Urine UA Norm (Normal); Ketones Urine Negative (Negative); Leukocyte Esterase Urine Negative (Negative); Nitrate Urine Negative (Negative); Protein Urine 1+ (Negative); Squamous Epithelial Cell Urine 0-4 /hpf (0-5); Urine Appearance Clear (CLEAR); Urobilinogen Urine Norm (Negative); pH Urine 5 (5-7)
[2023-02-23 19:42] LABS: Add Urine Culture? No; Amorphous Sediment Urine TRACE /hpf
[2023-02-23 20:09] LABS: Troponin 5 2HR 11.93 ng/L (0-10)
[2023-02-23 20:10] VITALS: BP 138/84; PULSE 78; RESP 14; O2SAT 96
[2023-02-23 20:16] LABS: Troponin 5 2HR Delta -1.07 ABS# (0-10)
== END 2023-02-23 20:10 | disposition home or self-care (01) ==
PROVIDERS: Emergency Provider Nurse Practitioner Family; PCP Nurse Practitioner
DX: K29.00 Acute gastritis without bleeding (principal); E86.0 Dehydration; Z79.4 Long term (current) use of insulin; E11.22 Type 2 diabetes mellitus with diabetic chronic kidney disease; I12.9 Hypertensive chronic kidney disease with stage 1 through stage 4 chronic kidney disease, or unspecified chronic kidney disease; N18.9 Chronic kidney disease, unspecified; E78.5 Hyperlipidemia, unspecified
CPT/HCPCS: 36415; 71045; 71260; 73130; 74177; 80053; 81001; 83605; 83690; 83880; 84484; 85025; 87040; 93005; 96361; 96374; 96375; 99285; J2405; J3010; J7030; Q9967

== ENCOUNTER → 2023-03-09 13:29 | Outpatient (BNVA) | payer MEDICARE, MEDICAID, SELFPAY | PROVIDERS: PCP Nurse Practitioner; Visit Provider Internal Medicine Pulmonary Disease | DX: R06.02 Shortness of breath (principal); T78.40XA Allergy, unspecified, initial encounter; R09.02 Hypoxemia; R05.3 Chronic cough | CPT/HCPCS: 36415; 82785; 86003 ==

== ENCOUNTER 2023-03-30 12:07 | Outpatient (CLI) | payer MEDICARE, MEDICAID, SELFPAY ==
--- NOTE | 2023-03-30 13:00 | USCV_ITS ---
Brittny Banks Age: 53 Gender: F : 1970 Exam Date: 03/30/2023 13:31 Ordering Phys: Dominick Stallings MD Technologist: Nikki Israel Exam Location: [facility] – [place] Indication: SOB BP: 128 / 80 HR: 89 Rhythm: Sinus Technical Quality: Adequate MEASUREMENTS (Male / Female) Normal Values 2D ECHO LV Diastolic Diameter PLAX 4.6 cm 4.2 - 5.9 / 3.9 - 5.3 cm LV Systolic Diameter PLAX 1.7 cm IVS Diastolic Thickness 1.3 cm 0.6 - 1.0 / 0.6 - 0.9 cm IVS Systolic Thickness 1.6 cm LVPW Diastolic Thickness 0.7 cm 0.6 - 1.0 / 0.6 - 0.9 cm LVPW Systolic Thickness 2.3 cm LVOT Diameter 2.0 cm LV Ejection Fraction 2D Teich 92.0 % LV Ejection Fraction MOD 2C 54.3 % LV Ejection Fraction 2C AL 55.6 % LA Diameter 2.9 cm LA Width 3.0 cm LA Height 5.6 cm RA Width 3.7 cm RA Height 4.2 cm Aorta at Sinotubular Diameter 2.2 cm IVC Diameter 1.8 cm M-MODE Aortic Annulus Diameter 2.2 cm LA Ao Ratio MM 1.4 MV E Point Septal Separation 0.4 cm DOPPLER AV Peak Velocity 179.0 cm/s LVOT Peak Velocity 109.0 cm/s AV Area Cont Eq vti 2.4 cm squared AV Area Cont Eq pk 2.0 cm squared MV Peak Velocity 127.0 cm/s MV Area PHT 3.1 cm squared Mitral E to A Ratio 0.9 MV E' Velocity 95.0 cm/s TR Peak Velocity 91.3 cm/s TR Peak Gradient 3.3 mmHg Right Atrial Pressure 5.0 mmHg Pulmonary Artery Systolic Pressu 8.3 mmHg PV Peak Velocity 108.0 cm/s RV Acceleration Time 0.1 s RV Ejection Time 0.3 s RV AcT/ET 0.3 FINDINGS Left Ventricle Normal left ventricular size and systolic function, EF 56 %. No regional wall motion abnormalities. Grade I/IV diastolic dysfunction (abnormal relaxation filling pattern), normal to mildly elevated filling pressures. Right Ventricle The right ventricle is normal in size and function. Right Atrium The right atrium is normal in size. Left Atrium The left atrium is normal in size. Mitral Valve Thickened mitral valve. Aortic Valve Thickened aortic valve. Tricuspid Valve No gross abnormalities noted Pulmonic Valve Mild pulmonary valve regurgitation. Pericardium No pericardial effusion. Aorta Normal ascending aorta dimension. IVC The inferior vena cava appears normal. CONCLUSIONS Normal left ventricular size and systolic function, EF 56 %. No regional wall motion abnormalities. Grade I/IV diastolic dysfunction (abnormal relaxation filling pattern), normal to mildly elevated filling pressures. Thickened mitral valve. Thickened aortic valve. Mild pulmonary valve regurgitation. There is no pericardial effusion. There are no intracardiac masses. Dr Allie Morales MD FACC (Electronically Signed) Final Date: 01 Apr 2023 00:12 S
== END 2023-03-30 12:08 | disposition home or self-care (01) ==
LOC: RAD 12:12
PROVIDERS: PCP Nurse Practitioner; Visit Provider Internal Medicine Pulmonary Disease
DX: R06.02 Shortness of breath (principal); I35.8 Other nonrheumatic aortic valve disorders; I34.0 Nonrheumatic mitral (valve) insufficiency; I37.1 Nonrheumatic pulmonary valve insufficiency
CPT/HCPCS: 36415; 82785; 86003; 93306

== ENCOUNTER → 2023-04-12 14:31 | Outpatient (BNVA) | payer MEDICARE, MEDICAID, SELFPAY | PROVIDERS: PCP Nurse Practitioner; Referring Provider Nurse Practitioner; Visit Provider Orthopaedic Surgery | DX: M65.4 Radial styloid tenosynovitis [de Quervain] (principal) | CPT/HCPCS: 73110; 99203; J0702; J3490 ==

== ENCOUNTER 2023-04-12 15:45 | Outpatient (CLI) | payer MEDICARE, MEDICAID, SELFPAY | END 2023-04-12 15:46 | disposition home or self-care (01) | LOC: SPT 15:45 | PROVIDERS: PCP Nurse Practitioner; Visit Provider Orthopaedic Surgery | DX: Z46.89 Encounter for fitting and adjustment of other specified devices (principal); M65.4 Radial styloid tenosynovitis [de Quervain] | CPT/HCPCS: 20550; 97760; L3809 ==

== ENCOUNTER 2023-06-24 14:24 | Emergency (ER) | payer MEDICARE, MEDICAID, SELFPAY ==
[2023-06-24 14:26] VITALS: BP 174/100; PULSE 93; RESP 18; TEMP 36.8; O2SAT 97; BMI 40.4
--- NOTE | 2023-06-24 14:27 | ED_ITS ---
Documented by User: Mani Leigh DO 06/25/23 08:17 HPI - Nausea/Vomiting/Diarrhea General: Chief complaint: Nausea/Vomiting/Diarrhea Stated complaint: n/v Time Seen by Provider: 06/24/23 14:25 Source: patient Mode of arrival: ambulatory History of Present Illness: 53-year-old female presents to the emergency room with complaints of nausea vomiting for the last 2 days. 4 episodes of vomiting today. She is normally on antihypertensive she ran out about a week ago and has not been taking any. She also complaining of a headache. Patient denies any medic easy melena hematemesis or coffee-ground emesis she normally wears 2 L by nasal cannula is wearing that today and satting normally she denies any shortness of breath or chest pain. MD elicited complaint: nausea and vomiting Onset (ago): day(s) (2) Description of vomiting: watery and bilious Associated nausea: Yes Associated abdominal pain: No Location of pain: None Exacerbating factors: none Relieving factors: none Associated symtoms: Reports dizziness and nausea; Denies altered mental status, anxiety, bloating, change in vision, chest pain, cough, diaphoresis, decreased urine output, dysuria, epistaxis, fatigue, fecal incontinence, fevers/chills, headache(s), anorexia, malaise, myalgias, numbness, palpitations, rash, short of breath, syncope, tenesmus, tinnitus or weakness Review of Systems Const: Denies: fever(s), chills, fatigue, malaise or diaphoresis Eyes: Denies: change in vision ENMT: Denies: tinnitus or epistaxis Card: Denies: chest pain, palpitations or syncope Resp: Denies: dyspnea, productive cough or non-productive cough GI: Reports: nausea; Denies: bloating or fecal incontinence : Denies: dysuria Skin/Breast: Denies: rash or pruritus Neuro: Reports: dizziness; Denies: headache(s) Psych: Denies: anxiety PFSH ED PFSH: Medical History Abdominal pain Chronic kidney disease Diabetes type 2, controlled Hyperlipidemia Hypertension Hypothyroidism Hypoxia Nausea & vomiting Surgical History History of colonoscopy 10+yrs History of laparoscopic cholecystectomy 1997 Family History Other Cancer Chronic kidney disease (CKD) Dementia Diabetes Stroke Denies family history of CAD (coronary artery disease) Anesthesia complication Social History Smoking and tobacco status: never smoked Alcohol intake: never Substance/Drug Use: never Lives independently: Yes Household members: none Physical Exam Const: COMMON NORMALS: no acute distress EXAM LIMITATIONS: no altered mental status GENERAL APPEARANCE: cooperative and comfortable ORIENTATION/CONSCIOUSNESS: Yes awake, Yes oriented to person, Yes oriented to place and Yes oriented to time HENMT: COMMON NORMALS: normocephalic, atraumatic and hearing grossly normal bilaterally HEAD & SCALP: normocephalic and atraumatic Resp: COMMON NORMALS: normal respiratory effort, No retractions, No use of accessory muscles and clear to auscultation bilaterally AUSCULTATION: clear to auscultation bilaterally Cardio: COMMON NORMALS: regular rate, regular rhythm and No murmurs present (Cardio) RATE: regular rate RHYTHM: regular rhythm GI: COMMON NORMALS: Soft to palpation and No hepatosplenomegaly present AUSCULTATION: Yes normoactive bowel sounds PALPATION: Yes Soft to palpation, No Tenderness to palpation present (GI), No Guarding due to palpation present (GI) and Yes No hepatosplenomegaly present Extremity: COMMON NORMALS: normal to inspection, capillary refill normal, no clubbing, cyanosis or edema, no calf tenderness and no pedal edema Neuro: SENSORIUM/ORIENTATION: Yes oriented to person, Yes oriented to place and Yes oriented to time Skin: COMMON NORMALS: no rashes or lesions noted GENERAL SKIN EXAM: no rashes or lesions noted Course Vital Signs: Vital signs: Vital Signs Temperature 79 F L 06/24/23 23:08 Pulse Rate 78 06/24/23 21:21 Respiratory Rate 18 06/24/23 21:21 Blood Pressure 138/76 06/24/23 23:08 Pulse Oximetry 97 06/24/23 23:08 Oxygen Delivery Me thod Nasal Cannula 06/24/23 21:21 Oxygen Flow Rate 3 06/24/23 21:21 MDM - Nausea/Vomiting/Diarrhea Medical Decision Making Blood pressures improved patient to complaining of nausea and headache. She still complains of abdominal discomfort. CT is pending chest x-ray did not show anything acute urine does show some contamination but there is some evidence of possible cystitis. Care signed out to Dr. Abad at change of shift. See final notes for diagnosis and disposition. Lab Data 06/24/23 14:30 06/24/23 14:30 Radiology Impressions Chest X-Ray 06/24/23 17:57 IMPRESSION: No acute findings. Abdomen/Pelvis CT 06/24/23 17:59 IMPRESSION: 1. Moderate chronic hiatal hernia. 2. Previous cholecystectomy. 3. Suboptimal urinary bladder distention with generalized wall thickening. 4. Mild scattered colonic diverticula. 5. Moderate stool content in the colon. 6. No bowel obstruction. Head CT 06/24/23 18:28 IMPRESSION: 1. No acute intracranial abnormality. 2. Right maxillary sinusitis. Laboratory Results WBC 10.9 10^3/uL (4.0-10.0) H 06/24/23 14:30 RBC 4.57 10^6/uL (4.1-5.3) 06/24/23 14:30 Hgb 12.8 g/dL (11.5-15.3) 06/24/23 14:30 Hct 38.4 % (37.0-47.0) 06/24/23 14:30 MCV 84.0 fl (81-99) 06/24/23 14:30 MCH 28.0 pg (28.0-34.0) 06/24/23 14:30 MCHC 33.3 g/dL (30.0-36.0) 06/24/23 14:30 RDW 12.3 % (12.1-15.1) 06/24/23 14:30 Plt Count 245 10^3/cmm (130-400) 06/24/23 14:30 MPV 10.7 fL (7.4-10.4) H 06/24/23 14:30 Neut % (Auto) 71.2 % 06/24/23 14:30 Lymph % (Auto) 17.1 % 06/24/23 14:30 [place] % (Auto) 9.9 % 06/24/23 14:30 Eos % (Auto) 1.1 % 06/24/23 14:30 Baso % (Auto) 0.2 % 06/24/23 14:30 Neut # (Auto) 7.77 10^3/uL (1.8-7.7) H 06/24/23 14:30 Lymph # (Auto) 1.9 10^3/uL (0.8-4.8) 06/24/23 14:30 [place] # (Auto) 1.1 10^3/uL (0.2-0.9) H 06/24/23 14:30 Eos # (Auto) 0.1 10^3/uL (0.0-0.8) 06/24/23 14:30 Baso # (Auto) 0.0 10^3/uL (0.0-0.1) 06/24/23 14:30 Nucleated RBC % (auto) 0 % 06/24/23 14:30 Nucleated RBCs # 0.0 /100WBC 06/24/23 14:30 Sodium 138 mmol/L (136-145) 06/24/23 14:30 Potassium 3.6 mmol/L (3.5-5.1) 06/24/23 14:30 Chloride 98 mmol/L (98-107) 06/24/23 14:30 Carbon Dioxide 28 mmol/L (22-29) 06/24/23 14:30 Anion Gap 15.6 (5-19) 06/24/23 14:30 BUN 9 mg/dL (6-20) 06/24/23 14:30 Creatinine 0.8 mg/dL (0.5-0.9) 06/24/23 14:30 GFR Calculation 74.5 mL/min (90-130) L 06/24/23 14:30 Glucose 78 mg/dL (65-115) 06/24/23 14:30 Calculated Osmolality 284 mOsm/kg (285-295) L 06/24/23 14:30 Calcium 9.4 mg/dL (8.5-10.5) 06/24/23 14:30 Total Bilirubin 0.2 mg/dL (0.15-1.2) 06/24/23 14:30 AST 12 U/L (0-32) 06/24/23 14:30 ALT 12 U/L (0-33) 06/24/23 14:30 Alkaline Phosphatase 100 U/L (35-105) 06/24/23 14:30 Troponin T Baseline 17 ng/L (0-10) H 06/24/23 14:30 Troponin T 120 Minute 17.67 ng/L (0-10) H 06/24/23 18:23 Delta Troponin T 0.67 ABS# (0-10) 06/24/23 18:23 Troponin T Hi Sens 6Hr 18.74 ng/L (0-10) H 06/24/23 20:40 Troponin T Hi Sens 6Hr Delta 1.74 ng/L (0-12) 06/24/23 20:40 Total Protein 6.8 g/dL (6.6-8.7) 06/24/23 14:30 Albumin 3.9 g/dL (3.5-5.2) 06/24/23 14:30 Globulin 2.9 g/dL (1.3-4.6) 06/24/23 14:30 Urine Color Yellow (Yellow) 06/24/23 15:32 Urine Appearance Cloudy (CLEAR) A 06/24/23 15:32 Urine pH 6 (5-7) 06/24/23 15:32 Ur Specific [place] 1.005 (1.005-1.030) 06/24/23 15:32 Urine Protein 1+ (Negative) H 06/24/23 15:32 Urine Glucose (UA) Norm (Normal) 06/24/23 15:32 Urine Ketones Negative (Negative) 06/24/23 15:32 Urine Blood 3+ (Negative) H 06/24/23 15:32 Urine Nitrate Negative (Negative) 06/24/23 15:32 Urine Bilirubin Neg (Negative) 06/24/23 15:32 Urine Urobilinogen Norm mg/dL (Negative) 06/24/23 15:32 Ur Leukocyte Esterase 2+ (Negative) H 06/24/23 15:32 Urine RBC 5-10 /hpf (0-2) H 06/24/23 15:32 Urine WBC 25-40 /hpf (0-5) H 06/24/23 15:32 Ur Squamous Epith Cells 25-40 /hpf (0-5) H 06/24/23 15:32 Amorphous Sediment Not Reportable 06/24/23 15:32 Urine Bacteria 1+ /hpf (NONE) H 06/24/23 15:32 Discharge Plan Discharge Patient Disposition: Home Clinical Impression: Headache, UTI (urinary tract infection) Condition: Stable Prescriptions: New cefdinir 300 mg capsule 300 mg PO BID Qty: 14 0RF hydrocodone-acetaminophen 5-325 mg tablet 1 tab PO Q8H PRN (Reason: pain) Qty: 7 0RF Changed ondansetron 4 mg tablet,disintegrating 4 - 8 mg PO Q8H PRN (Reason: nausea and vomiting) Qty: 10 0RF No Action (DME) thumb spica splint See Rx Instructions .Route .MEDSUPPLY Qty: 1 0RF Rx Instructions: As directed gabapentin 300 mg capsule 300 mg PO TID sertraline 50 mg tablet 50 mg PO DAILY rosuvastatin 20 mg tablet 40 mg PO DAILY duloxetine 60 mg capsule,delayed release(DR/EC) 60 mg PO DAILY Humalog KwikPen Insulin 200 unit/mL (3 mL) insulin pen See Rx Instructions .ROUTE .COMPLEX Rx Instructions: sliding scale Ozempic 1 mg/dose (4 mg/3 mL) pen injector 0.25 mg SUBCUT Q7D albuterol sulfate 90 mcg/actuation HFA aerosol inhaler 2 puff INHALATION Q4H PRN (Reason: Shortness Of Breath) losartan 50 mg Tablet 50 mg PO DAILY Qty: 60 2RF amlodipine 10 mg Tablet 10 mg PO DAILY Qty: 60 2RF Tradjenta 5 mg tablet 5 mg PO DAILY Qty: 60 0RF insulin degludec [Tresiba FlexTouch U-200] 200 unit/mL (3 mL) Insulin Pen 83 unit SUBCUT BEDTIME Qty: 5 2RF levothyroxine 125 mcg capsule 125 mcg PO DAILY polyethylene glycol 3350 [Miralax] 17 gram powder in packet 17 g PO BID Qty: 30 0RF celecoxib 200 mg capsule 200 mg PO BID omeprazole 40 mg capsule,delayed release(DR/EC) 40 mg PO DAILY montelukast 10 mg tablet 40 mg PO BEDTIME Discharge Orders: Discharge ED (Routine); Ordered 06/24/23 Ordered By: Terry Abad Referrals: Paulo Meyers FNP [Primary Care Provider] - 1-3 days Patient Instructions: Urinary Tract Infection in Women (ED), Acute Headache (ED), Opioid Safety, Pain Management Activity Restrictions/Additional Instructions: Take nausea medication scheduled for the next 24 hours, then as needed. Liquid diet for the next 12 hours, then you may increase if no vomiting. Pain medication for significant pain. Antibiotics as directed. Return for vomiting liquids or medications, fever greater than 100 despite 3-4 doses of antibiotics, worsening pain despite treatment, other concerning symptoms. 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 [employer] Documented by User: Terry Abad DO 06/24/23 21:14 HPI - Nausea/Vomiting/Diarrhea General: Chief complaint: Nausea/Vomiting/Diarrhea Stated complaint: n/v Time Seen by Provider: 06/24/23 14:25 PFSH ED PFSH: Medical History Abdominal pain Chronic kidney disease Diabetes type 2, controlled Hyperlipidemia Hypertension Hypothyroidism Hypoxia Nausea & vomiting Surgical History History of colonoscopy 10+yrs History of laparoscopic cholecystectomy 1997 Family History Other Cancer Chronic kidney disease (CKD) Dementia Diabetes Stroke Denies family history of CAD (coronary artery disease) Anesthesia complication Social History Smoking and tobacco status: never smoked Alcohol intake: never Substance/Drug Use: never Lives independently: Yes Household members: none Course Vital Signs: Vital signs: Vital Signs Temperature 79 F L 06/24/23 23:08 Pulse Rate 78 06/24/23 21:21 Respiratory Rate 18 06/24/23 21:21 Blood Pressure 138/76 06/24/23 23:08 Pulse Oximetry 97 06/24/23 23:08 Oxygen Delivery Me thod Nasal Cannula 06/24/23 21:21 Oxygen Flow Rate 3 06/24/23 21:21 MDM - Nausea/Vomiting/Diarrhea Medical Decision Making Blood pressures improved patient to complaining of nausea and headache. She still complains of abdominal discomfort. CT is pending chest x-ray did not show anything acute urine does show some contamination but there is some evidence of possible cystitis. Care signed out to Dr. Abad at change of shift. See final notes for diagnosis and disposition. Some evidence of possible cystitis on CT as well. CT of the abdomen pelvis is otherwise negative. Head CT is negative. Serum work-up is largely unremarkable. Her headache is improved. Her blood pressures remained stable. She will be discharged. Treatment for cystitis. Antiemetic for nausea. Outpatient follow-up. To return if worsening. Lab Data 06/24/23 14:30 06/24/23 14:30 Radiology Impressions Chest X-Ray 06/24/23 17:57 IMPRESSION: No acute findings. Abdomen/Pelvis CT 06/24/23 17:59 IMPRESSION: 1. Moderate chronic hiatal hernia. 2. Previous cholecystectomy. 3. Suboptimal urinary bladder distention with generalized wall thickening. 4. Mild scattered colonic diverticula. 5. Moderate stool content in the colon. 6. No bowel obstruction. Head CT 06/24/23 18:28 IMPRESSION: 1. No acute intracranial abnormality. 2. Right maxillary sinusitis. Laboratory Results WBC 10.9 10^3/uL (4.0-10.0) H 06/24/23 14:30 RBC 4.57 10^6/uL (4.1-5.3) 06/24/23 14:30 Hgb 12.8 g/dL (11.5-15.3) 06/24/23 14:30 Hct 38.4 % (37.0-47.0) 06/24/23 14:30 MCV 84.0 fl (81-99) 06/24/23 14:30 MCH 28.0 pg (28.0-34.0) 06/24/23 14:30 MCHC 33.3 g/dL (30.0-36.0) 06/24/23 14:30 RDW 12.3 % (12.1-15.1) 06/24/23 14:30 Plt Count 245 10^3/cmm (130-400) 06/24/23 14:30 MPV 10.7 fL (7.4-10.4) H 06/24/23 14:30 Neut % (Auto) 71.2 % 06/24/23 14:30 Lymph % (Auto) 17.1 % 06/24/23 14:30 [place] % (Auto) 9.9 % 06/24/23 14:30 Eos % (Auto) 1.1 % 06/24/23 14:30 Baso % (Auto) 0.2 % 06/24/23 14:30 Neut # (Auto) 7.77 10^3/uL (1.8-7.7) H 06/24/23 14:30 Lymph # (Auto) 1.9 10^3/uL (0.8-4.8) 06/24/23 14:30 [place] # (Auto) 1.1 10^3/uL (0.2-0.9) H 06/24/23 14:30 Eos # (Auto) 0.1 10^3/uL (0.0-0.8) 06/24/23 14:30 Baso # (Auto) 0.0 10^3/uL (0.0-0.1) 06/24/23 14:30 Nucleated RBC % (auto) 0 % 06/24/23 14:30 Nucleated RBCs # 0.0 /100WBC 06/24/23 14:30 Sodium 138 mmol/L (136-145) 06/24/23 14:30 Potassium 3.6 mmol/L (3.5-5.1) 06/24/23 14:30 Chloride 98 mmol/L (98-107) 06/24/23 14:30 Carbon Dioxide 28 mmol/L (22-29) 06/24/23 14:30 Anion Gap 15.6 (5-19) 06/24/23 14:30 BUN 9 mg/dL (6-20) 06/24/23 14:30 Creatinine 0.8 mg/dL (0.5-0.9) 06/24/23 14:30 GFR Calculation 74.5 mL/min (90-130) L 06/24/23 14:30 Glucose 78 mg/dL (65-115) 06/24/23 14:30 Calculated Osmolality 284 mOsm/kg (285-295) L 06/24/23 14:30 Calcium 9.4 mg/dL (8.5-10.5) 06/24/23 14:30 Total Bilirubin 0.2 mg/dL (0.15-1.2) 06/24/23 14:30 AST 12 U/L (0-32) 06/24/23 14:30 ALT 12 U/L (0-33) 06/24/23 14:30 Alkaline Phosphatase 100 U/L (35-105) 06/24/23 14:30 Troponin T Baseline 17 ng/L (0-10) H 06/24/23 14:30 Troponin T 120 Minute 17.67 ng/L (0-10) H 06/24/23 18:23 Delta Troponin T 0.67 ABS# (0-10) 06/24/23 18:23 Troponin T Hi Sens 6Hr 18.74 ng/L (0-10) H 06/24/23 20:40 Troponin T Hi Sens 6Hr Delta 1.74 ng/L (0-12) 06/24/23 20:40 Total Protein 6.8 g/dL (6.6-8.7) 06/24/23 14:30 Albumin 3.9 g/dL (3.5-5.2) 06/24/23 14:30 Globulin 2.9 g/dL (1.3-4.6) 06/24/23 14:30 Urine Color Yellow (Yellow) 06/24/23 15:32 Urine Appearance Cloudy (CLEAR) A 06/24/23 15:32 Urine pH 6 (5-7) 06/24/23 15:32 Ur Specific [place] 1.005 (1.005-1.030) 06/24/23 15:32 Urine Protein 1+ (Negative) H 06/24/23 15:32 Urine Glucose (UA) Norm (Normal) 06/24/23 15:32 Urine Ketones Negative (Negative) 06/24/23 15:32 Urine Blood 3+ (Negative) H 06/24/23 15:32 Urine Nitrate Negative (Negative) 06/24/23 15:32 Urine Bilirubin Neg (Negative) 06/24/23 15:32 Urine Urobilinogen Norm mg/dL (Negative) 06/24/23 15:32 Ur Leukocyte Esterase 2+ (Negative) H 06/24/23 15:32 Urine RBC 5-10 /hpf (0-2) H 06/24/23 15:32 Urine WBC 25-40 /hpf (0-5) H 06/24/23 15:32 Ur Squamous Epith Cells 25-40 /hpf (0-5) H 06/24/23 15:32 Amorphous Sediment Not Reportable 06/24/23 15:32 Urine Bacteria 1+ /hpf (NONE) H 06/24/23 15:32 Discharge Plan Discharge Patient Disposition: Home Clinical Impression: Headache, UTI (urinary tract infection) Condition: Stable Prescriptions: New cefdinir 300 mg capsule 300 mg PO BID Qty: 14 0RF hydrocodone-acetaminophen 5-325 mg tablet 1 tab PO Q8H PRN (Reason: pain) Qty: 7 0RF Changed ondansetron 4 mg tablet,disintegrating 4 - 8 mg PO Q8H PRN (Reason: nausea and vomiting) Qty: 10 0RF No Action (DME) thumb spica splint See Rx Instructions .Route .MEDSUPPLY Qty: 1 0RF Rx Instructions: As directed gabapentin 300 mg capsule 300 mg PO TID sertraline 50 mg tablet 50 mg PO DAILY rosuvastatin 20 mg tablet 40 mg PO DAILY duloxetine 60 mg capsule,delayed release(DR/EC) 60 mg PO DAILY Humalog KwikPen Insulin 200 unit/mL (3 mL) insulin pen See Rx Instructions .ROUTE .COMPLEX Rx Instructions: sliding scale Ozempic 1 mg/dose (4 mg/3 mL) pen injector 0.25 mg SUBCUT Q7D albuterol sulfate 90 mcg/actuation HFA aerosol inhaler 2 puff INHALATION Q4H PRN (Reason: Shortness Of Breath) losartan 50 mg Tablet 50 mg PO DAILY Qty: 60 2RF amlodipine 10 mg Tablet 10 mg PO DAILY Qty: 60 2RF Tradjenta 5 mg tablet 5 mg PO DAILY Qty: 60 0RF insulin degludec [Tresiba FlexTouch U-200] 200 unit/mL (3 mL) Insulin Pen 83 unit SUBCUT BEDTIME Qty: 5 2RF levothyroxine 125 mcg capsule 125 mcg PO DAILY polyethylene glycol 3350 [Miralax] 17 gram powder in packet 17 g PO BID Qty: 30 0RF celecoxib 200 mg capsule 200 mg PO BID omeprazole 40 mg capsule,delayed release(DR/EC) 40 mg PO DAILY montelukast 10 mg tablet 40 mg PO BEDTIME Discharge Orders: Discharge ED (Routine); Ordered 06/24/23 Ordered By: Terry Abad Referrals: Paulo Meyers FNP [Primary Care Provider] - 1-3 days Patient Instructions: Urinary Tract Infection in Women (ED), Acute Headache (ED), Opioid Safety, Pain Management Activity Restrictions/Additional Instructions: Take nausea medication scheduled for the next 24 hours, then as needed. Liquid diet for the next 12 hours, then you may increase if no vomiting. Pain medication for significant pain. Antibiotics as directed. Return for vomiting liquids or medications, fever greater than 100 despite 3-4 doses of antibiotics, worsening pain despite treatment, other concerning symptoms. Coding Level of Care Code ED Field Marketing Director for Felipe Lmabert
[2023-06-24] MEDS: sodium chloride 0.9% 1,000 ML 999 ML IV (14:35)
[2023-06-24 14:37] VITALS: BP 172/88; PULSE 85; RESP 16; O2SAT 99
[2023-06-24 14:39] LABS: Basophils % 0.2 %; Eosinophils # 0.1 10^3/uL (0.0-0.8); Eosinophils % 1.1 %; Hematocrit 38.4 % (37.0-47.0); Hemoglobin 12.8 g/dL (11.5-15.3); Lymphocytes # 1.9 10^3/uL (0.8-4.8); Lymphocytes % 17.1 %; Mean Corpuscular HGB Conc 33.3 g/dL (30.0-36.0); Mean Platelet Volume 10.7 fL (7.4-10.4); Monocytes # 1.1 10^3/uL (0.2-0.9); Monocytes % 9.9 %; Neutrophils # 7.77 10^3/uL (1.8-7.7); Neutrophils % 71.2 %; Nucleated Red Blood Cells % 0 %; Platelet Count 245 10^3/cmm (130-400); Red Blood Count 4.57 10^6/uL (4.1-5.3); Red Cell Distribution Width 12.3 % (12.1-15.1); White Blood Count 10.9 10^3/uL (4.0-10.0)
[2023-06-24] MEDS: promethazine 25 mg/mL SDV 1 mL IM (14:39)
[2023-06-24 15:06] LABS: Alanine Aminotransferase 12 U/L (0-33); Albumin Level 3.9 g/dL (3.5-5.2); Alkaline Phosphatase 100 U/L (35-105); Aspartate Amino Transferase 12 U/L (0-32); Blood Urea Nitrogen 9 mg/dL (6-20); Calcium 9.4 mg/dL (8.5-10.5); Carbon Dioxide 28 mmol/L (22-29); Chloride 98 mmol/L (98-107); Globulin 2.9 g/dL (1.3-4.6); Glomerular Filtration Rate 74.5 mL/min (90-130); Glucose 78 mg/dL (65-115); Osmolality Calculated 284 mOsm/kg (285-295); Sodium 138 mmol/L (136-145); Total Bilirubin 0.2 mg/dL (0.15-1.2); Total Protein 6.8 g/dL (6.6-8.7)
[2023-06-24 15:09] LABS: Anion Gap 15.6 (5-19); Potassium 3.6 mmol/L (3.5-5.1)
[2023-06-24 16:01] LABS: Add Urine Microscopic? YES; Bilirubin Urine Neg (Negative); Blood Urine 3+ (Negative); Glucose Urine UA Norm (Normal); Ketones Urine Negative (Negative); Leukocyte Esterase Urine 2+ (Negative); Nitrate Urine Negative (Negative); Protein Urine 1+ (Negative); Specific Gravity, Urine 1.005 (1.005-1.030); Urine Appearance Cloudy (CLEAR); Urine Color Yellow (Yellow); Urobilinogen Urine Norm (Negative); pH Urine 6 (5-7)
[2023-06-24 16:04] LABS: Squamous Epithelial Cell Urine 25-40 /hpf (0-5)
[2023-06-24 16:05] LABS: Add Urine Culture? Yes; Bacteria Urine 1+ /hpf; WBC Urine 25-40 /hpf (0-5)
[2023-06-24 17:21] VITALS: BP 180/100; PULSE 78; RESP 18; O2SAT 100
[2023-06-24] MEDS: metoprolol tartrate 25 mg Tablet PO (17:31)
[2023-06-24] MEDS: hyDRALAzine 20 mg/mL INJ 1 mL IVP (17:31)
--- NOTE | 2023-06-24 17:57 | XRR_ITS ---
PROCEDURE INFORMATION: Exam: XR Chest Exam date and time: 06/24/2023 6:02 PM Age: 53 years old Clinical indication: Cough; Additional info: Dyspnea/cough TECHNIQUE: Imaging protocol: Radiologic exam of the chest. Views: 1 view. COMPARISON: CT chest abdpel w/*[id number] 02/23/2023 6:33 PM FINDINGS: Lungs: Unremarkable. No consolidation. Pleural spaces: Unremarkable. No pleural effusion. No pneumothorax. Heart/Mediastinum: Mild cardiomegaly. Bones/joints: Resection of the distal right clavicle. XR/XR chest 1V portable [id number] IMPRESSION: No acute findings.
--- NOTE | 2023-06-24 17:58 | ECG_ITS ---
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 Measurements Intervals [place] Rate: 92 P: 58 AK: 144 QRS: 40 QRSD: 75 T: 55 QT: 344 QTc: 426 Interpretive Statements SINUS RHYTHM NONSPECIFIC ST & T-WAVE ABNORMALITY Compared to ECG 02/23/2023 17:53:43 T-wave abnormality now present Electronically Signed On 06-24-2023 18:40:28 CDT by Allie Morales M.D. [email or web address]/[id number]
--- NOTE | 2023-06-24 17:59 | CTR_ITS ---
PROCEDURE INFORMATION: Exam: CT Abdomen And Pelvis Without Contrast Exam date and time: 06/24/2023 6:24 PM Age: 53 years old Clinical indication: Nausea and vomiting; Prior surgery; Surgery date: 6+ months; Surgery type: Gb; Patient HX: N/v with hypertension x 2 days; Additional info: Abdominal pain TECHNIQUE: Imaging protocol: Computed tomography of the abdomen and pelvis without contrast. Radiation optimization: All CT scans at this facility use at least one of these dose optimization techniques: automated exposure control; mA and/or kV adjustment per patient size (includes targeted exams where dose is matched to clinical indication); or iterative reconstruction. REPORTING DATA: Count of CT and Cardiac NM exams in prior 12 months: This patient has received [address] and 0 known cardiac nuclear medicine studies in the 12 months prior to the current study. COMPARISON: CT chest abdpel w/*[id number] 02/23/2023 6:33 PM RADIATION DOSE METRICS: Total DLP (mGy-cm): 1106.12 FINDINGS: Lungs: Stable tiny nodule anterior lower right lung with previous exam. No infiltrate or effusion. Diaphragm: Moderate hiatal hernia chronic with prior exam. Liver: Normal. No mass. Gallbladder and bile ducts: Surgical clips in the gallbladder fossa, prior cholecystectomy. No biliary ductal dilatation. Pancreas: Normal. No ductal dilation. Spleen: Normal. No splenomegaly. Adrenal glands: Normal. No mass. Kidneys and ureters: Normal. No hydronephrosis. Stomach and bowel: Unremarkable. No obstruction. No mucosal thickening. Mild left inguinal hernia of fat. Mild scattered colonic diverticula. No CT findings of diverticulitis. Moderate stool content. Appendix: No evidence of appendicitis. Intraperitoneal space: Unremarkable. No free air. No significant fluid collection. Vasculature: Unremarkable. No abdominal aortic aneurysm. Mild vascular calcification. Lymph nodes: Unremarkable. No enlarged lymph nodes. Urinary bladder: Poorly distended urinary bladder with generalized wall thickening. This is likely related to underdistention. Reproductive: Unremarkable as visualized. Bones/joints: Spondylotic change within the spine with degenerative disc disease L5-S1.. Soft tissues: Unremarkable. CT/CT abdomen pelvis wo con [id number] IMPRESSION: 1. Moderate chronic hiatal hernia. 2. Previous cholecystectomy. 3. Suboptimal urinary bladder distention with generalized wall thickening. 4. Mild scattered colonic diverticula. 5. Moderate stool content in the colon. 6. No bowel obstruction.
[2023-06-24 18:15] VITALS: BP 122/73; PULSE 88; RESP 16; O2SAT 98
[2023-06-24 18:20] LABS: Troponin(5th) Baseline 17 ng/L (0-10)
--- NOTE | 2023-06-24 18:28 | CTR_ITS ---
PROCEDURE INFORMATION: Exam: CT Head Without Contrast Exam date and time: 06/24/2023 6:31 PM Age: 53 years old Clinical indication: Pain; Other: N/v hypertensive; Headache; Patient HX: [place] with n/v and hypertension; Additional info: Headache/n/v TECHNIQUE: Imaging protocol: Computed tomography of the head without contrast. Radiation optimization: All CT scans at this facility use at least one of these dose optimization techniques: automated exposure control; mA and/or kV adjustment per patient size (includes targeted exams where dose is matched to clinical indication); or iterative reconstruction. REPORTING DATA: Count of CT and Cardiac NM exams in prior 12 months: This patient has received [address] and 0 known cardiac nuclear medicine studies in the 12 months prior to the current study. COMPARISON: No relevant prior studies available. RADIATION DOSE METRICS: Total DLP (mGy-cm): 956.85 FINDINGS: Brain: Mild diffuse cortical volume loss. Mild hypodensities in supratentorial periventricular and subcortical white matter, consistent with microangiopathy. No intracranial hemorrhage. Cerebral ventricles: No ventriculomegaly. Paranasal sinuses: Near complete opacification of the right maxillary sinus. Mucosal thickening in right ethmoid air cells. The other sinuses are clear. Mastoid air cells: Visualized mastoid air cells are well aerated. Bones/joints: Unremarkable. No acute fracture. Soft tissues: Unremarkable. Vasculature: No hyperdense artery. CT/CT head wo con* [id number] IMPRESSION: 1. No acute intracranial abnormality. 2. Right maxillary sinusitis.
[2023-06-24] MEDS: metoclopramide 5 mg/mL SDV 2 mL 10 MG IVP (18:39)
[2023-06-24 18:58] LABS: Troponin 5 2HR 17.67 ng/L (0-10)
[2023-06-24 19:06] LABS: Troponin 5 2HR Delta 0.67 ABS# (0-10)
[2023-06-24] MEDS: ondansetron 2 mg/ML SDV 2 mL 4 MG IVP (19:58)
--- NOTE | 2023-06-24 19:58 | ECG_ITS ---
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 Measurements Intervals [place] Rate: 78 P: 39 ME: 146 QRS: 42 QRSD: 85 T: 109 QT: 362 QTc: 413 Interpretive Statements SINUS RHYTHM MODERATE T-WAVE ABNORMALITY, CONSIDER LATERAL ISCHEMIA [-0.1+ mV T-WAVE IN I/aVL/V5/V6] Compared to ECG 06/24/2023 18:01:47 Possible ischemia now present T-wave abnormality still present Electronically Signed On 06-27-2023 8:38:32 CDT by Greg Calloway M.D. [email or web address]/store/[id number]
[2023-06-24] MEDS: morphine 4 mg/mL SDV 1 mL IVP (20:00)
[2023-06-24] MEDS: ketorolac 30 mg/mL INJ 15 MG IVP ×2 (20:02→21:17)
[2023-06-24 21:10] LABS: Troponin 5 6HR 18.74 ng/L (0-10)
[2023-06-24 21:14] LABS: Troponin 5 6HR Delta 1.74 ng/L (0-12)
[2023-06-24] MEDS: cefdinir 300 MG CAPSULE PO (21:17)
[2023-06-24] MEDS: morphine 4 mg/mL SDV 1 mL 2 MG IVP (21:18)
--- NOTE | 2023-06-24 21:20 | PC.NURSE ---
Pt sent home with [place] per Dr Abad's order.
[2023-06-24 21:21] VITALS: BP 148/78; PULSE 78; RESP 18; O2SAT 98
[2023-06-24 23:08] VITALS: BP 138/76; TEMP 26.1; O2SAT 97
== END 2023-06-24 22:52 | disposition home or self-care (01) ==
PROVIDERS: Family Medicine; Emergency Provider Emergency Medicine; PCP Nurse Practitioner
DX: N39.0 Urinary tract infection, site not specified (principal); R51.9 Headache, unspecified; I12.9 Hypertensive chronic kidney disease with stage 1 through stage 4 chronic kidney disease, or unspecified chronic kidney disease; E11.22 Type 2 diabetes mellitus with diabetic chronic kidney disease; N18.9 Chronic kidney disease, unspecified; E78.5 Hyperlipidemia, unspecified; E03.9 Hypothyroidism, unspecified; Z79.4 Long term (current) use of insulin; Z79.84 Long term (current) use of oral hypoglycemic drugs; Z79.85 Long-term (current) use of injectable non-insulin antidiabetic drugs
CPT/HCPCS: 36415; 70450; 71045; 74176; 80053; 81001; 84484; 85025; 87086; 93005; 96372; 96374; 96375; 96376; 99285; J0360; J1885; J2270; J2405; J2550; J2765; J7030

== ENCOUNTER 2023-06-27 15:23 | Emergency (ER) | payer MEDICARE, MEDICAID, SELFPAY ==
[2023-06-27 16:03] VITALS: BP 158/84; PULSE 82; RESP 14; TEMP 36.9; O2SAT 97; BMI 39.7
--- NOTE | 2023-06-27 18:46 | ED_ITS ---
HPI - Headache General: Chief Complaint: Headache Stated Complaint: VOMITING, HEADACHE Time Seen by Provider: 06/27/23 18:43 History of Present Illness: 83-year-old female comes in today with persistent headache since Tuesday. Patient was seen on the and diagnosed with headache and urinary tract infection at that time. Patient been taking her antibiotics as directed. Patient continues to report some discomfort with urination. Patient appears nontoxic. Patient appears in mild to moderate pain. Patient takes medications for hypertension, diabetes mellitus, hypothyroidism, GERD, depression, hyperlipidemia. Review of Systems General: Reports: 10 or more systems reviewed and unremarkable except in HPI and below Neuro: Reports: headache(s) PFSH ED PFSH: Medical History Abdominal pain Chronic kidney disease Diabetes type 2, controlled Hyperlipidemia Hypertension Hypothyroidism Hypoxia Nausea & vomiting Surgical History History of colonoscopy 10+yrs History of laparoscopic cholecystectomy 1997 Family History Other Cancer Chronic kidney disease (CKD) Dementia Diabetes Stroke Denies family history of CAD (coronary artery disease) Anesthesia complication Social History Smoking and tobacco status: never smoked Alcohol intake: never Substance/Drug Use: never Lives independently: Yes Household members: none Physical Exam Const: COMMON NORMALS: alert HENMT: COMMON NORMALS: normocephalic HEAD & SCALP: normocephalic Neck/C-Spine: COMMON NORMALS: full ROM Resp: COMMON NORMALS: normal respiratory effort and clear to auscultation bilaterally AUSCULTATION: clear to auscultation bilaterally Cardio: COMMON NORMALS: regular rate and regular rhythm RATE: regular rate RHYTHM: regular rhythm GI: COMMON NORMALS: Soft to palpation and non-tender PALPATION: Yes Soft to palpation Extremity: COMMON NORMALS: no pedal edema Neuro: SENSORIUM/ORIENTATION: Yes alert Skin: COMMON NORMALS: turgor normal GENERAL SKIN EXAM: turgor normal Course Vital Signs: Vital signs: Vital Signs Temperature 98.5 F 06/27/23 16:03 Pulse Rate 82 06/27/23 16:03 Respiratory Rate 14 06/27/23 16:03 Blood Pressure 158/84 06/27/23 16:03 Pulse Oximetry 97 06/27/23 16:03 Oxygen Delivery Me thod Nasal Cannula 06/27/23 16:03 Oxygen Flow Rate 2 06/27/23 16:03 MDM - Headache Medical Decision Making 53-year-old female comes in today with persistent headache since Tuesday. On exam patient appears nontoxic. Respirations are even lungs are clear to auscultation. Skin is warm and dry. Abdomen soft and nontender. Vital signs are normal except for some mild elevation of blood pressure. Differential diagnosis includes but not limited to migraine headache, malingering, anxiety, intracranial bleeding/mass effect, dehydration. Laboratory values were unremarkable no significant difference from patient's baseline. Urine had a lot of skin cells and yeast noted in it. Review of the records showed a urine cu lture that grew out normal skin timmy from the [address] of the head showed no significant abnormalities and improvement of the maxillary sinusitis. I believe that patient's headache is probably secondary to a maxillary sinusitis she should complete the cefdinir for the rhinosinusitis. Since patient had yeast in her urine I went ahead and dosed with 1 dose of Diflucan and she will repeat the dosing at the end of the antibiotic. Most likely the yeast is what is causing her urinary discomfort at this time. Headache was improved after the dosing with Reglan and diphenhydramine. Patient was stable and discharged to home. Lab Data 06/27/23 19:29 06/27/23 19:[address] 06/27/23 18:49 IMPRESSION: 1. No acute intracranial abnormality. 2. Improved opacification of the right maxillary sinus with some persistent mucosal thickening. Laboratory Results WBC 10.2 10^3/uL (4.0-10.0) H 06/27/23 19: RBC 4.80 10^6/uL (4.1-5.3) 06/27/23 19: Hgb 13.2 g/dL (11.5-15.3) 06/27/23 19: Hct 41.0 % (37.0-47.0) 06/27/23 19: MCV 85.4 fl (81-99) 06/27/23 19: MCH 27.5 pg (28.0-34.0) L 06/27/23 19: MCHC 32.2 g/dL (30.0-36.0) 06/27/23 19: RDW 12.2 % (12.1-15.1) 06/27/23 19: Plt Count 243 10^3/cmm (130-400) 06/27/23 19:29 MPV 10.7 fL (7.4-10.4) H 06/27/23 19: Neut % (Auto) 71.2 % 06/27/23 19:29 Lymph % (Auto) 21.9 % 06/27/23 19: Fisher % (Auto) 5.8 % 06/27/23 19: Eos % (Auto) 0.5 % 06/27/23: Baso % (Auto) 0.3 % 06/27/23: Neut # (Auto) 7.28 10^3/uL (1.8-7.7) 06/27/23 19: Lymph # (Auto) 2.2 10^3/uL (0.8-4.8) 06/27/23 19: Fisher # (Auto) 0.6 10^3/uL (0.2-0.9) 06/27/23 19: Eos # (Auto) 0.1 10^3/uL (0.0-0.8) 06/27/23 19: Baso # (Auto) 0.0 10^3/uL (0.0-0.1) 06/27/23 19: Nucleated RBC % (auto) 0 % 06/27/23 19: Nucleated RBCs # 0.0 /100WBC 06/27/23 19:29 Sodium 137 mmol/L (136-145) 06/27/23 19: Potassium 3.8 mmol/L (3.5-5.1) 06/27/23 19: Chloride 96 mmol/L (98-107) L 06/27/23 19:29 Carbon Dioxide 31 mmol/L (22-29) H 06/27/23 19:29 Anion Gap 13.8 (5-19) 06/27/23 19:29 BUN 9 mg/dL (6-20) 06/27/23 19: Creatinine 0.7 mg/dL (0.5-0.9) 06/27/23 19:29 GFR Calculation 86.9 mL/min (90-130) L 06/27/23 19: Glucose 130 mg/dL (65-115) H 06/27/23 19:29 Calculated Osmolality 284 mOsm/kg (285-295) L 06/27/23 19: Calcium 9.8 mg/dL (8.5-10.5) 06/27/23 19: Total Bilirubin 0.3 mg/dL (0.15-1.2) 06/27/23 19:29 AST 12 U/L (0-32) 06/27/23 19: ALT 10 U/L (0-33) 06/27/23 19: Alkaline Phosphatase 97 U/L (35-105) 06/27/23 19: Total Protein 6.8 g/dL (6.6-8.7) 06/27/23 19: Albumin 3.8 g/dL (3.5-5.2) 06/27/23 19: Globulin 3.0 g/dL (1.3-4.6) 06/27/23 19:29 Urine Color Yellow (Yellow) 06/27/23 19:05 Urine Appearance Sl hazy (CLEAR) A 06/27/23 19:05 Urine pH 6 (5-7) 06/27/23 19:05 Ur Specific Butner 1.015 (1.005-1.030) 06/27/23 19:05 Urine Protein 3+ (Negative) H 06/27/23 19:05 Urine Glucose (UA) Norm (Normal) 06/27/23 19:05 Urine Ketones Negative (Negative) 06/27/23 19:05 Urine Blood 2+ (Negative) H 06/27/23 19:05 Urine Nitrate Negative (Negative) 06/27/23 19:05 Urine Bilirubin Neg (Negative) 06/27/23 19:05 Urine Urobilinogen Norm mg/dL (Negative) 06/27/23 19:05 Ur Leukocyte Esterase Trace (Negative) H 06/27/23 19:05 Urine RBC 0-4 /hpf (0-2) H 06/27/23 19:05 Urine WBC 25-40 /hpf (0-5) H 06/27/23 19:05 Ur Squamous Epith Cells 40-55 /hpf (0-5) H 06/27/23 19:05 Amorphous Sediment Not Reportable 06/27/23 19:05 Urine Bacteria 1+ /hpf (NONE) H 06/27/23 19:05 Urine Yeast 1+ /hpf H 06/27/23 19:05 Discharge Plan Discharge Patient Disposition: Home Clinical Impression: Rhinosinusitis, Yeast infection of the vagina Headache Qualifiers: Headache type: unspecified Headache chronicity pattern: unspecified pattern Intractability: not intractable Qualified Code(s): R51.9 - Headache, unspecified Condition: Stable Prescriptions: New fluconazole 150 mg tablet 150 mg PO DAILY Qty: 1 0RF Rx Instructions: administer on day 1 of therapy after completion of antibiotic No Action (DME) thumb spica splint See Rx Instructions .Route .MEDSUPPLY Qty: 1 0RF Rx Instructions: As directed gabapentin 300 mg capsule 300 mg PO TID sertraline 50 mg tablet 50 mg PO DAILY rosuvastatin 20 mg tablet 40 mg PO DAILY duloxetine 60 mg capsule,delayed release(DR/EC) 60 mg PO DAILY Humalog KwikPen Insulin 200 unit/mL (3 mL) insulin pen See Rx Instructions .ROUTE .COMPLEX Rx Instructions: sliding scale Ozempic 1 mg/dose (4 mg/3 mL) pen injector 0.25 mg SUBCUT Q7D albuterol sulfate 90 mcg/actuation HFA aerosol inhaler 2 puff INHALATION Q4H PRN (Reason: Shortness Of Breath) losartan 50 mg Tablet 50 mg PO DAILY Qty: 60 2RF amlodipine 10 mg Tablet 10 mg PO DAILY Qty: 60 2RF Tradjenta 5 mg tablet 5 mg PO DAILY Qty: 60 0RF insulin degludec [Tresiba FlexTouch U-200] 200 unit/mL (3 mL) Insulin Pen 83 unit SUBCUT BEDTIME Qty: 5 2RF levothyroxine 125 mcg capsule 125 mcg PO DAILY polyethylene glycol 3350 [Miralax] 17 gram powder in packet 17 g PO BID Qty: 30 0RF celecoxib 200 mg capsule 200 mg PO BID omeprazole 40 mg capsule,delayed release(DR/EC) 40 mg PO DAILY montelukast 10 mg tablet 40 mg PO BEDTIME cefdinir 300 mg capsule 300 mg PO BID Qty: 14 0RF hydrocodone-acetaminophen 5-325 mg tablet 1 tab PO Q8H PRN (Reason: pain) Qty: 7 0RF ondansetron 4 mg tablet,disintegrating 4 - 8 mg PO Q8H PRN (Reason: nausea and vomiting) Qty: 10 0RF Discharge Orders: Discharge ED (Routine); Ordered 06/27/23 Ordered By: Melvin Gutiérrez Referrals: Paulo Meyers, [facility] [Primary Care Provider] - Discharge Diet: Usual diet Discharge Activity: Increase activity as tolerated Patient Instructions: Yeast Infection (ED) Activity Restrictions/Additional Instructions: Complete antibiotic for treatment of rhinosinusitis and urinary tract infection. Repeat dose of Diflucan, yeast medication, at the end of antibiotic dosing. Use routine medications as needed for headache. Drink plenty of water and fluids. Follow-up with primary care. Coding Level of Care Code ED Plating Machine Operator for Felipe Lambert
--- NOTE | 2023-06-27 18:49 | CTR_ITS ---
PROCEDURE INFORMATION: Exam: CT Head Without Contrast Exam date and time: 06/27/2023 7:05 PM Age: 53 years old Clinical indication: Pain; Headache; Additional info: Persistent headache TECHNIQUE: Imaging protocol: Computed tomography of the head without contrast. Radiation optimization: All CT scans at this facility use at least one of these dose optimization techniques: automated exposure control; mA and/or kV adjustment per patient size (includes targeted exams where dose is matched to clinical indication); or iterative reconstruction. REPORTING DATA: Count of CT and Cardiac NM exams in prior 12 months: This patient has received 3 known CTs and 0 known cardiac nuclear medicine studies in the 12 months prior to the current study. COMPARISON: CT head wo con* [id number] 06/24/2023 6:31 PM RADIATION DOSE METRICS: Total DLP (mGy-cm): 1025.65 FINDINGS: Brain: No hemorrhage. No edema. Mild diffuse cerebral atrophy. Unremarkable white matter. No mass effect. Cerebral ventricles: No ventriculomegaly. Paranasal sinuses: Mucosal thickening of the right maxillary sinus. Mastoid air cells: Visualized mastoid air cells are well aerated. Bones/joints: Unremarkable. No acute fracture. Soft tissues: Unremarkable. CT/CT head wo con* [id number] IMPRESSION: 1. No acute intracranial abnormality. 2. Improved opacification of the right maxillary sinus with some persistent mucosal thickening.
[2023-06-27] MEDS: metoclopramide 5 mg/mL SDV 2 mL 10 MG IVP (19:22)
[2023-06-27] MEDS: ketorolac 30 mg/mL INJ 15 MG IVP (19:22)
[2023-06-27 19:38] LABS: Basophils % 0.3 %; Eosinophils # 0.1 10^3/uL (0.0-0.8); Eosinophils % 0.5 %; Hemoglobin 13.2 g/dL (11.5-15.3); Lymphocytes # 2.2 10^3/uL (0.8-4.8); Lymphocytes % 21.9 %; Mean Corpuscular HGB Conc 32.2 g/dL (30.0-36.0); Mean Corpuscular Hemoglobin 27.5 pg (28.0-34.0); Mean Corpuscular Volume 85.4 fl (81-99); Mean Platelet Volume 10.7 fL (7.4-10.4); Monocytes # 0.6 10^3/uL (0.2-0.9); Monocytes % 5.8 %; Neutrophils # 7.28 10^3/uL (1.8-7.7); Neutrophils % 71.2 %; Nucleated Red Blood Cells % 0 %; Platelet Count 243 10^3/cmm (130-400); Red Cell Distribution Width 12.2 % (12.1-15.1); White Blood Count 10.2 10^3/uL (4.0-10.0)
[2023-06-27 19:46] LABS: Add Urine Culture? Yes; Add Urine Microscopic? YES; Bacteria Urine 1+ /hpf; Bilirubin Urine Neg (Negative); Blood Urine 2+ (Negative); Glucose Urine UA Norm (Normal); Ketones Urine Negative (Negative); Leukocyte Esterase Urine Trace (Negative); Nitrate Urine Negative (Negative); Protein Urine 3+ (Negative); RBC Urine 0-4 /hpf (0-2); Specific Gravity, Urine 1.015 (1.005-1.030); Squamous Epithelial Cell Urine 40-55 /hpf (0-5); Urine Appearance SL Hazy (CLEAR); Urine Color Yellow (Yellow); Urobilinogen Urine Norm (Negative); WBC Urine 25-40 /hpf (0-5); pH Urine 6 (5-7)
[2023-06-27 19:56] LABS: Anion Gap 13.8 (5-19); Blood Urea Nitrogen 9 mg/dL (6-20); Calcium 9.8 mg/dL (8.5-10.5); Carbon Dioxide 31 mmol/L (22-29); Chloride 96 mmol/L (98-107); Glomerular Filtration Rate 86.9 mL/min (90-130); Glucose 130 mg/dL (65-115); Osmolality Calculated 284 mOsm/kg (285-295); Potassium 3.8 mmol/L (3.5-5.1); Sodium 137 mmol/L (136-145); Total Bilirubin 0.3 mg/dL (0.15-1.2)
[2023-06-27 19:57] LABS: Alanine Aminotransferase 10 U/L (0-33); Albumin Level 3.8 g/dL (3.5-5.2); Alkaline Phosphatase 97 U/L (35-105); Aspartate Amino Transferase 12 U/L (0-32); Total Protein 6.8 g/dL (6.6-8.7)
[2023-06-27] MEDS: fluconazole 100 mg Tablet 150 MG PO (20:29)
== END 2023-06-27 20:36 | disposition home or self-care (01) ==
PROVIDERS: Emergency Provider Nurse Practitioner Family; PCP Nurse Practitioner
DX: R51.9 Headache, unspecified (principal); J32.9 Chronic sinusitis, unspecified; B37.31 Acute candidiasis of vulva and vagina; Z79.4 Long term (current) use of insulin; I12.9 Hypertensive chronic kidney disease with stage 1 through stage 4 chronic kidney disease, or unspecified chronic kidney disease; E11.22 Type 2 diabetes mellitus with diabetic chronic kidney disease; N18.9 Chronic kidney disease, unspecified; E78.5 Hyperlipidemia, unspecified
CPT/HCPCS: 36415; 70450; 80053; 81001; 85025; 87086; 96374; 96375; 99284; J1885; J2765